=== PATIENT | female | born 1965 | race Caucasian/White ===

== ENCOUNTER → 2020-07-30 09:19 | Outpatient (BNVA) | payer MEDICAID, SELFPAY | PROVIDERS: Visit Provider Student in an Organized Health Care Education/Training Program | DX: M89.49 Other hypertrophic osteoarthropathy, multiple sites (principal); M79.7 Fibromyalgia | CPT/HCPCS: 99212 ==

== ENCOUNTER 2020-08-13 09:22 | Outpatient (REF) | payer SELFPAY ==
[2020-08-13 10:26] LABS: Cholesterol 200 mg/dL
== END 2020-08-13 09:23 | disposition home or self-care (01) ==
LOC: HO.LNC 09:22
PROVIDERS: Visit Provider Pathology Anatomic Pathology & Clinical Pathology
DX: Z13.89 Encounter for screening for other disorder (principal)
CPT/HCPCS: 36415; 82465

== ENCOUNTER 2020-08-25 13:45 | Outpatient (REF) | payer MEDICAID, SELFPAY | END 2020-08-25 13:46 | disposition home or self-care (01) | LOC: HO.HOSX 13:45 | PROVIDERS: PCP Internal Medicine; Visit Provider Orthopaedic Surgery | DX: M65.4 Radial styloid tenosynovitis [de Quervain] (principal); M79.7 Fibromyalgia; R20.0 Anesthesia of skin; R20.2 Paresthesia of skin; F17.210 Nicotine dependence, cigarettes, uncomplicated | CPT/HCPCS: 20550; 99202; J1100 ==

== ENCOUNTER 2020-10-20 09:57 | Outpatient (REF) | payer OTHER, SELFPAY ==
--- NOTE | 2020-10-20 10:00 | EMG_ITS ---
This is a 55-year-old woman with more than 10 year history of pain, numbness, and tingling and the right wrist pain. PHYSICAL EXAMINATION: On examination, she is alert and oriented with normal intellectual functions. Cranial nerves II through XII are normal. Muscle tone and strength are normal in all 4 extremities. No Tinel or Phalen sign. IMPRESSION: Rule out carpal tunnel syndrome. Nerve conduction EMG study: Normal electrodiagnostic study of both upper extremities with no evidence of carpal tunnel syndrome or nerve entrapment. Normal EMG of the right C5-T1 innervated muscles including cervical paraspinal muscles. MD CRISTHIAN Lynn/REESE / [id number]
== END 2020-10-20 09:58 | disposition home or self-care (01) ==
LOC: HO.NEURO 09:57
PROVIDERS: PCP Internal Medicine; Visit Provider Orthopaedic Surgery
DX: R20.0 Anesthesia of skin (principal); R20.2 Paresthesia of skin
CPT/HCPCS: 95885; 95913

== ENCOUNTER → 2020-11-15 14:28 | Outpatient (BNVA) | payer OTHER, SELFPAY | PROVIDERS: PCP Internal Medicine; Visit Provider Orthopaedic Surgery | DX: R20.0 Anesthesia of skin (principal); R20.2 Paresthesia of skin; M65.4 Radial styloid tenosynovitis [de Quervain] | CPT/HCPCS: 99212 ==

== ENCOUNTER → 2021-03-30 13:29 | Outpatient (BNVA) | payer OTHER, SELFPAY | PROVIDERS: PCP Internal Medicine; Visit Provider Orthopaedic Surgery | DX: M65.4 Radial styloid tenosynovitis [de Quervain] (principal) | CPT/HCPCS: 99212 ==

== ENCOUNTER 2021-04-11 12:08 | Day surgery (SDC) | payer OTHER, SELFPAY ==
[2021-04-11 12:44] VITALS: BP 163/75; PULSE 80; RESP 16; TEMP 36.1; O2SAT 97; BMI 32.1
--- NOTE | 2021-04-11 13:30 | W.PM.OPN ---
Operative Note Operative Note Date of Service: 04/11/21 Narrative: Operative Note Preop diagnosis: 1. Right DeQuervain's tenosynovitis Postop diagnosis: 1. Right DeQuervain's tenosynovitis Procedure: 1. Right 1st dorsal compartment release 2. Right 1st dorsal compartment abductor pollicis longus and extensor pollicis brevis tenosynovectomies Surgeon: Charissa Hawley MD Anesthesia: local block using 1% lidocaine with epinephrine Findings: Thickened 1st dorsal compartment. Hypertrophic tenosynovium about the APL and EPB tendons. EBL: Less than 5 mL Tourniquet time: None Specimens: None Complications: None Disposition: Brought to recovery room in stable condition Plan: Follow-up for 7-10 days for wound check and suture removal Indications: The patient is 55 years old, with right DeQuervain's tenosynovitis that has been unresponsive to nonoperative management. The risks and benefits of operative treatment including but not limited to risk of damage to blood vessels, nerves, tendons, infection, persistent pain, persistent symptoms, recurrence or possible need for additional surgery were discussed with the patient and the patient wishes to proceed with surgery. Procedure: Once consent was obtained a local block was performed in the preop area using a combination of 1% lidocaine with epinephrine. The patient was then brought back to the operating suite and placed on the operative table in supine position. A tourniquet was applied to the proximal aspect of the right upper extremity and the limb was prepped and draped in a standard surgical fashion. Once assured that we had a good block, a 1.5 cm longitudinal incision was made centered over the 1st dorsal compartment as it passed over the radial styloid of the right wrist. The incision was made through the skin to the subcutaneous tissues using a #15 blade. Careful dissection was made down to the level of the 1st dorsal compartment using tenotomy scissors, with care being taken to protect the nearby branches of the superficial radial nerve. Once the 1st dorsal compartment was exposed, A longitudinal incision was made in the 1st dorsal compartment 1st using a #15 blade, then using tenotomy scissors under direct visualization. The 1st dorsal compartment was noted to be thickened. Following our release, we saw abundant inflamed tenosynovium about the APL and EPB tendons. I then performed a tenosynovectomy, excising the inflamed tenosynovium from about the APL and EPB tendons. Both the APL and EPB tendons were in a single compartment, and there was smooth gliding of the abductor pollicis longus and extensor pollicis brevis tendons following are tenosynovectomy Once satisfied with our 1st dorsal compartment release the wound was copiously irrigated with normal saline and hemostasis was obtained with a brief period of local pressure. The skin edges were reapproximated with some 5.0 nylon suture material and a sterile dressing was applied. The patient appears to have tolerated the procedure well and with no complications. All digits were well vascularized at the conclusion of the case.
[2021-04-11 14:55] VITALS: BP 156/90; PULSE 77; RESP 18; TEMP 36.8; O2SAT 97
== END 2021-04-11 15:10 | disposition home or self-care (01) ==
PROVIDERS: PCP Internal Medicine; Visit Provider Orthopaedic Surgery
PROC: (CPT 26145; principal; 2021-04-11 14:00)
DX: M65.4 Radial styloid tenosynovitis [de Quervain] (principal); I10 Essential (primary) hypertension
CPT/HCPCS: 26145 ×2; 25000

== ENCOUNTER → 2021-04-20 12:29 | Outpatient (BNVA) | payer OTHER, SELFPAY | PROVIDERS: Visit Provider Physician Assistant | DX: M65.4 Radial styloid tenosynovitis [de Quervain] (principal) | CPT/HCPCS: 99212 ==

== ENCOUNTER → 2021-07-20 09:52 | Outpatient (BNVA) | payer OTHER, SELFPAY | PROVIDERS: PCP Internal Medicine; Visit Provider Nurse Practitioner Family | DX: M89.49 Other hypertrophic osteoarthropathy, multiple sites (principal); M79.7 Fibromyalgia; M54.50 Low back pain, unspecified | CPT/HCPCS: 99212 ==

== ENCOUNTER 2021-09-19 07:46 | Outpatient (REF) | payer OTHER, SELFPAY ==
--- NOTE | ~2021-09-19 | XR_ITS ---
EXAMINATION: XR LUMBOSACRAL SPINE CLINICAL INFORMATION: Low back pain. COMPARISON: None TECHNIQUE: Three views of the lumbosacral spine. FINDINGS: There is mild straightening of lumbar lordosis. The vertebral heights and alignment are normal. There is loss of L5-S1 disc height. Rest of the disc heights are maintained normal. There is mild ventral spondylosis throughout lumbar spine. No visible fracture, dislocation or lytic process seen. The soft tissues are normal. Degenerative disc changes L5-S1 disc level with moderate-sized spondylosis. XR/XR lumbar spine 2-3V IMPRESSION: Mild degenerative disc changes L5-S1 disc level with mild ventral spondylosis throughout lumbar spine. No acute fracture or lytic process seen.
== END 2021-09-19 07:47 | disposition home or self-care (01) ==
LOC: HO.XRAY 07:46
PROVIDERS: PCP Internal Medicine; Visit Provider Nurse Practitioner Family
DX: M54.50 Low back pain, unspecified (principal)
CPT/HCPCS: 72100

== ENCOUNTER → 2021-10-11 10:46 | Outpatient (BNVA) | payer OTHER, SELFPAY | PROVIDERS: PCP Internal Medicine; Visit Provider Nurse Practitioner Family | DX: M51.37 Other intervertebral disc degeneration, lumbosacral region (principal); M46.1 Sacroiliitis, not elsewhere classified; M54.2 Cervicalgia; M47.816 Spondylosis without myelopathy or radiculopathy, lumbar region; R20.0 Anesthesia of skin; R20.2 Paresthesia of skin | CPT/HCPCS: 99202 ==

== ENCOUNTER 2021-10-17 09:00 | Outpatient (RCR) | payer OTHER, SELFPAY ==
[2021-08-31 08:17] LABS: MANUAL DIFF FLAG NO
[2021-08-31 08:31] LABS: Basophils Absolute Auto 0.1 X10*3/uL (0.0-0.2); Basophils Percent Auto 0.7 % (0-2); Eosinophils Absolute Auto 0.2 X10*3/uL (0.0-0.4); Eosinophils Percent Auto 2.8 % (0-4); Hematocrit 42.1 % (37.0-47.0); Hemoglobin 14.2 g/dl (12.0-16.0); Imm Gran Abs Auto 0.03 X10*3/uL (0.00-0.03); Imm Gran Pct Auto 0.4 % (0.0-0.4); Lymphocytes Absolute Auto 1.8 X10*3/uL (1.2-4.9); Lymphocytes Percent Auto 25.6 % (20-40); Mean Corpuscular HGB Conc 33.7 g/dl (31.0-35.0); Mean Corpuscular Hemoglobin 30.9 pg (27.0-33.0); Mean Corpuscular Volume 91.5 fL (80.0-98.0); Mean Platelet Volume 10.2 fL (9.4-12.3); Monocytes Absolute Auto 0.5 X10*3/uL (0.1-1.2); Monocytes Percent Auto 6.7 % (2-11); Neutrophils Absolute Auto 4.5 x10*3/uL (2.0-8.3); Neutrophils Percent Auto 63.8 % (45-73); Platelet Count 187 X10*3/uL (160-400); Red Cell Distribution Width 12.9 % (11.0-16.0)
[2021-08-31 08:42] LABS: Appearance Urine CLEAR; Color Urine STRAW; Glucose Urine UA NEG (NEG); Leukocyte Esterase Urine NEG (NEG); Nitrite Urine NEG (NEG); Specific Gravity - Urine 1.015 (1.005-1.025); Urine Blood NEG (NEG); Urine Ketones NEG (NEG); Urine Protein NEG (NEG-TRACE)
[2021-08-31 09:08] LABS: Alanine Aminotransferase 15 U/L (0-31); Albumin Level 4.5 g/dL (3.5-5.0); Alkaline Phosphatase 107 U/L (39-117); Anion Gap 16 (12-20); Aspartate Amino Transferase 16 U/L (5-31); Bilirubin Total 0.4 mg/dL (0.0-1.0); Blood Urea Nitrogen 16 mg/dL (9-16); C Reactive Protein 0.52 mg/dL (< or = 0.50); Calcium 9.6 mg/dL (8.4-10.2); Carbon Dioxide 25 mmol/L (22-29); Chloride 106 mmol/L (96-108); Cholesterol 228 mg/dL; Erythrocyte Sedimentation Rate 10 MM/HR (0-20); Estimated Glomerular Filt Rate > 60; Glucose Fasting 109 mg/dL (60-99); HDL Cholesterol 45 mg/dL; LDL Cholesterol Calculated 139 mg/dl; Potassium 4.5 mmol/L (3.3-5.1); Sodium 142 mmol/L (135-145); Total Protein 7.5 g/dL (6.5-8.0); Triglycerides 220 mg/dL
[2021-08-31 09:31] LABS: Thyroid Stimulating Hormone 2.45 uIU/mL (0.32-4.0); Vitamin D 25-OH Total 33.9 ng/mL (>30)
[2021-08-31 09:37] LABS: Folate 12.2 ng/mL (> or = 4.0); Vitamin B12 588 pg/mL (200-900)
--- NOTE | 2021-08-31 16:21 | MHC.PT.EP ---
[facility] [place] Office [place] Office [place] Office [address] June Chow [address] [phone] F: [phone] F: [phone] F: [phone] F: [phone] Physical Therapy Plan of Care Date of Evaluation: Date of Surgery: NA Diagnosis: LOW BACK PAIN, FMS () Assessment: PILI IS A PLEASANT 56 YO FEMALE WHO PRESENTS WITH DIAGNOSIS OF LOW BACK PAIN AND FIBROMYALGIA. UPON EXAM SHE DOES REPORT SOME RELUCTANCE TO THERAPY TREATMENT YEARS AGO DID NOT HELP HER SYMPTOMS. UPON EXAM, SHE DEMONSTRATES DECREASED LUMBAR ROM, ALTERED POSTURE AND POSITIONING, ALTERED GAIT, DECREASED SOFT TISSUE MOBILITY AND INCREASED PAIN. FUNCTIONAL LIMITATIONS INCLUDE DECREASED ABILITY TO PERFORM LIFTING, BENDING, REACHING, PUSHING AND PULLING. SHE REPORTS DECREASED ABILITY TO PERFORM RECREATIONAL AND COMMUNITY ACTIVITIES. A PT IS A GOOD CANDIDATE FOR SKILLED PT DUE TO AGE, POTENTIAL REMEDIATION OF IMPAIRMENTS, TYPICAL DISEASE/CONDITION PROGRESSION AND PROGNOSIS, COMORBIDITIES, AND MOTIVATION. PT WOULD BENEFIT FROM TAILORED PROGRAM OF THERAPEUTIC ACTIVITIES, FUNCTIONAL TRAINING, GAIT TRAINING, POSTURAL EDUCATION, NEUROMUSCULAR RE-EDUCATION, AND MODALITIES NEEDED. Frequency and Duration: The patient will be seen 2 X WEEK FOR 6 WEEKS Short Term Goals: INITIATE HEP AND PROMOTE SELF MANAGEMENT OF SYMPTOMS IN 3 VISITS Jail Goals: IN 5 WEEKS FULL, PAIN FREE LUMBAR ROM TO PERFORM FULL FUNCTIONAL SQUAT WITH CORRECT MECHANICS AND NO VERBAL CUING TO PERFORM 3:3 LIFTING TASKS UP TO 20# WITHOUT CUING AND PAIN NO GREATER THAN 2/10 INDEPENDENT HEP AND SELF MANAGEMENT OF ANY RESIDUAL SYMPTOMS Treatment Plan: Modalities to reduce pain, spasms and effusion. Manual therapy to restore motion and function. Therapeutic exercise to improve strength and flexibility. Neuromuscular re-education for posture and balance. Therapeutic activities to return to functional activities of daily living. Electronically signed by: RAMEHS ELLISON PT, DPT Please sign and return to therapist. Thank you for your referral.
[2021-09-04 13:56] LABS: Vitamin B6 8.4 ng/mL (2.1-21.7)
[2021-09-05 12:15] LABS: Vitamin B1 16 nmol/L (8-30)
--- NOTE | 2021-10-21 08:33 | MHC.PT.DC ---
[facility] [place] Office [place] Office [place] Office [address] June Chow [address] [phone] F: [phone] F: [phone] F: [phone] F: [phone] Physical Therapy Discharge Report Diagnosis: LOW BACK PAIN, FMS (KP) Date of Surgery: NA Date of Evaluation: 08/31/21 Date of Discharge: 10/21/21 Treatments to Date: 12 Cancellations to Date: 0 No Shows to Date: 0 Discharge Status: Independent with HEP Discharge Summary: PILI IS INDEPENDENT WITH HER HOME PROGRAM AND HAS COMPLETED 12 VISITS OF THERAPY. SUBJECTIVE REPORTS OF PAIN HAVE NOT CHANGED AND AT THIS TIME RECOMMEDATIONS ARE TO CONTINUE HEP AND FOLLOW WITH PAIN MANAGEMENT. Electronically signed by: RAMESH ELLISON PT, DPT Please sign and return to therapist. Thank you for your referral.
== END 2021-10-21 08:34 | disposition home or self-care (01) ==
LOC: HO.PT 09:00
PROVIDERS: PCP Internal Medicine; Visit Provider Nurse Practitioner Family
DX: Z00.00 Encounter for general adult medical examination without abnormal findings (principal); M54.50 Low back pain, unspecified; I10 Essential (primary) hypertension; K21.9 Gastro-esophageal reflux disease without esophagitis; M79.7 Fibromyalgia
CPT/HCPCS: 36415; 80053; 80061; 81003; 82306; 82607; 82746; 84207; 84425; 84443; 85025; 85652; 86140; 97110; 97140; 97162; 97535

== ENCOUNTER 2021-11-01 09:24 | Outpatient (REF) | payer OTHER, SELFPAY ==
--- NOTE | ~2021-11-01 | XR_ITS ---
EXAMINATION: XR PELVIS CLINICAL INFORMATION: Sacroiliitis COMPARISON: None TECHNIQUE: Single frontal views of the pelvis obtained. FINDINGS: There is no radiographic evidence of acute fracture or dislocation. No osteolytic or osteoblastic lesions. Degenerative osteoarthritis of both hip joints and SI joints evident by narrowing of joint spaces and sclerotic changes of articular surfaces. There are vascular calcifications. Adjacent pubic rami are intact. Surrounding soft tissue is unremarkable. XR/XR pelvis 1-2V IMPRESSION: Bilateral degenerative osteoarthritis. Vascular calcifications.
--- NOTE | ~2021-11-01 | XR_ITS ---
EXAMINATION:XR cervical spine 3V CLINICAL INFORMATION: Cervalgia COMPARISON: None TECHNIQUE: 3 views of the cervical spine were obtained. Frontal lateral and open-mouth odontoid view FINDINGS: 7 cervical vertebrae identified maintaining normal height and alignments.. Narrowing of intervertebral disc spaces at C4-C5, C5-C6, C6-C7 and C7-T1 suggests underlying moderate degenerative disc disease. No prevertebral soft tissue swelling. Surrounding soft tissue and included lung apices are clear. Included lung apices are clear XR/XR cervical spine 3V IMPRESSION: No fracture or dislocation. Narrowing of intervertebral disc spaces suggest underlying degenerative disc disease.
[2021-11-04 09:16] LABS: HPV mRNA E6/E7 rflx Not Detected (Not Detected)
== END 2021-11-01 09:25 | disposition home or self-care (01) ==
LOC: HO.LAB 09:24
PROVIDERS: Absent Provider Nurse Practitioner Family; PCP Internal Medicine; Visit Provider Obstetrics & Gynecology
DX: Z01.419 Encounter for gynecological examination (general) (routine) without abnormal findings (principal); M46.1 Sacroiliitis, not elsewhere classified; M54.2 Cervicalgia; F17.210 Nicotine dependence, cigarettes, uncomplicated
CPT/HCPCS: 72040; 72170; 87624; 88142

== ENCOUNTER → 2021-11-08 10:21 | Outpatient (BNVA) | payer OTHER, SELFPAY | PROVIDERS: PCP Internal Medicine; Visit Provider Nurse Practitioner Family | DX: M46.1 Sacroiliitis, not elsewhere classified (principal); M54.2 Cervicalgia; M51.37 Other intervertebral disc degeneration, lumbosacral region; M47.816 Spondylosis without myelopathy or radiculopathy, lumbar region; M79.7 Fibromyalgia | CPT/HCPCS: 99212 ==

== ENCOUNTER 2021-11-22 08:08 | Outpatient (REF) | payer OTHER, SELFPAY ==
--- NOTE | ~2021-11-22 | MR_ITS ---
EXAMINATION: MR LUMBAR SPINE WITHOUT CONTRAST CLINICAL INFORMATION: Low back pain. Right leg pain. COMPARISON: X-ray from 09/19/2021 and MRI dated 06/22/2008. TECHNIQUE: MRI of the lumbar spine was obtained using routine sequences without contrast. FINDINGS: VERTEBRAL BODIES AND PARASPINAL STRUCTURES: There are mixed chronic and edematous endplate changes at the L5-S1 level with severe disc space narrowing and endplate spurring. There are irregularities of the endplates as well which may reflect Schmorl's nodes. Slightly elevated signal is noted within the disc space on the STIR-weighted acquisition. There are no compression fractures or anterior subluxations. The remainder of the marrow signal is within normal limits. The paraspinal soft tissues are unremarkable. Small right renal cyst is noted. There are urjg-en-oohezlgv degenerative changes of the sacroiliac joints. CONUS MEDULLARIS AND CAUDA EQUINA: Normal, terminating at the level of L2. No lower cord signal abnormality seen. The cauda equina nerve roots are normal. SPINAL LEVELS: L1-L2 and L2-L3: No disc pathology, central canal stenosis, or foraminal narrowing. Mild facet arthropathy at both levels. L3-L4: Mild degenerative disc bulge and anterior endplate spurring. Mild to moderate facet arthropathy. Findings result in mild central canal stenosis. Bulging disc mild to moderately encroaches upon the neural foramina. L4-L5: Slight posterior subluxation and diffuse disc bulge with hypertrophic facet arthropathy resulting in mild central canal stenosis and mild bilateral foraminal narrowing. L5-S1: Severe loss of disc height and retrosubluxation with endplate spurring and a diffuse disc bulge. Moderate facet arthropathy and mild central canal stenosis. Moderate to severe foraminal encroachment, worse on the left side. MR/MR lumbar spine wo con IMPRESSION: Severe degenerative disc disease at the L5-S1 level with endplate irregularities and mild to moderate marrow edema. Although findings may be due to reactive inflammatory changes from spondylosis, the possibility of early discitis/osteomyelitis cannot be conclusively ruled out on the basis of imaging. No epidural or paraspinal soft tissue disease otherwise. Recommend clinical correlation. Progressed spondylosis at the L3-L4 and L4-L5 levels with mild central canal stenosis and mild disc bulges encroaching upon the neural foramina. Imaging findings reported to WILTON Villareal at 3:20 PM on 11/23/2021.
== END 2021-11-22 08:09 | disposition home or self-care (01) ==
LOC: HO.MRI 08:08
PROVIDERS: PCP Internal Medicine; Visit Provider Nurse Practitioner Family
DX: M47.816 Spondylosis without myelopathy or radiculopathy, lumbar region (principal); M48.062 Spinal stenosis, lumbar region with neurogenic claudication; M51.37 Other intervertebral disc degeneration, lumbosacral region
CPT/HCPCS: 72148

== ENCOUNTER 2021-11-29 09:41 | Outpatient (REF) | payer OTHER, SELFPAY ==
--- NOTE | ~2021-11-29 | MM_ITS ---
EXAMINATION: MM SCREENING DIGITAL BREAST TOMOSYNTHESIS, BILATERAL CLINICAL INFORMATION: Screening. Asymptomatic. The lifetime risk of breast cancer based on the Tyrer-Cuzick Model is 10%. COMPARISON: Mammography: 09/20/2016, 10/19/2014 TECHNIQUE: Digital breast tomosynthesis is performed in both the craniocaudal and mediolateral oblique views along with computer-aided detection (CAD). Synthesized 2D images are generated from the tomosynthesis. Additional bilateral MLO views are provided. FINDINGS: There are scattered areas of fibroglandular density (ACR BI-RADS breast composition Category b). There are no significant masses, abnormal calcifications, or other abnormalities. Parenchymal pattern is similar to prior exams. No developing density. The axilla are unremarkable. MM/MM tomosynthesis screening BI IMPRESSION: No mammographic evidence of malignancy. ASSESSMENT: BI-RADS 1: Negative RECOMMENDATION: Routine annual mammography screening. This patient's information was entered into a reminder system with a target due date for their next mammogram.
== END 2021-11-29 09:42 | disposition home or self-care (01) ==
LOC: HO.MAMMO 09:41
PROVIDERS: Visit Provider Internal Medicine
DX: Z12.31 Encounter for screening mammogram for malignant neoplasm of breast (principal)
CPT/HCPCS: 77063; 77067

== ENCOUNTER 2021-12-02 13:30 | Outpatient (REF) | payer OTHER, SELFPAY ==
--- NOTE | ~2021-12-02 | MR_ITS ---
EXAMINATION: MR LUMBAR SPINE WITH CONTRAST CLINICAL INFORMATION: Abnormal findings on lumbar spine MRI. Follow-up. COMPARISON: Lumbar spine MRI 11/22/2021. TECHNIQUE: MR imaging of the lumbar spine was performed after the intravenous administration of 9 mL Gadavist contrast. FINDINGS: This examination is read in conjunction with the recent lumbar spine MRI from 11/22/2021. There is relatively mild bone marrow enhancement at the level of L5-S1 which coincides with the most likely diagnosis of degenerative spondylosis. No evidence of a discrete drainable fluid collection. No abnormal paraspinal inflammation or enhancement. No identifiable epidural phlegmon or abscess. MR/MR lumbar spine w con IMPRESSION: No evidence of discitis osteomyelitis. Bone marrow enhancement characteristics at L5-S1 are most consistent with degenerative spondylosis. No identifiable abscess or phlegmon.
[2021-12-02 13:38] LABS: MANUAL DIFF FLAG NO
[2021-12-02 13:40] LABS: Basophils Absolute Auto 0.1 X10*3/uL (0.0-0.2); Basophils Percent Auto 0.6 % (0-2); Eosinophils Absolute Auto 0.1 X10*3/uL (0.0-0.4); Eosinophils Percent Auto 1.1 % (0-4); Hematocrit 42.9 % (37.0-47.0); Hemoglobin 14.6 g/dl (12.0-16.0); Imm Gran Abs Auto 0.06 X10*3/uL (0.00-0.03); Imm Gran Pct Auto 0.5 % (0.0-0.4); Lymphocytes Absolute Auto 1.5 X10*3/uL (1.2-4.9); Lymphocytes Percent Auto 12.4 % (20-40); Mean Corpuscular Hemoglobin 30.4 pg (27.0-33.0); Mean Corpuscular Volume 89.4 fL (80.0-98.0); Mean Platelet Volume 10.2 fL (9.4-12.3); Monocytes Absolute Auto 0.6 X10*3/uL (0.1-1.2); Monocytes Percent Auto 5.1 % (2-11); Neutrophils Absolute Auto 9.9 x10*3/uL (2.0-8.3); Neutrophils Percent Auto 80.3 % (45-73); Platelet Count 213 X10*3/uL (160-400); Red Cell Distribution Width 13.4 % (11.0-16.0); White Blood Count 12.4 X10*3/uL (4.8-10.8)
[2021-12-02 13:52] LABS: Blood Urea Nitrogen 19 mg/dL (9-16); C Reactive Protein 0.68 mg/dL (< or = 0.50); Estimated Glomerular Filt Rate 50
[2021-12-02 14:35] LABS: Erythrocyte Sedimentation Rate 10 MM/HR (0-20)
== END 2021-12-02 13:31 | disposition home or self-care (01) ==
LOC: HO.MRI 13:30
PROVIDERS: PCP Internal Medicine; Visit Provider Nurse Practitioner Family
DX: Z01.812 Encounter for preprocedural laboratory examination (principal); M47.816 Spondylosis without myelopathy or radiculopathy, lumbar region; M51.37 Other intervertebral disc degeneration, lumbosacral region; R93.7 Abnormal findings on diagnostic imaging of other parts of musculoskeletal system
CPT/HCPCS: 36415; 72149; 82565; 84520; 85025; 85652; 86140; A9585

== ENCOUNTER → 2021-12-07 11:25 | Outpatient (BNVA) | payer OTHER, SELFPAY | PROVIDERS: PCP Internal Medicine; Visit Provider Nurse Practitioner Family | DX: M46.1 Sacroiliitis, not elsewhere classified (principal); M54.2 Cervicalgia; M51.37 Other intervertebral disc degeneration, lumbosacral region; M47.819 Spondylosis without myelopathy or radiculopathy, site unspecified; M79.7 Fibromyalgia; M89.49 Other hypertrophic osteoarthropathy, multiple sites; M53.9 Dorsopathy, unspecified; M54.16 Radiculopathy, lumbar region | CPT/HCPCS: 99212 ==

== ENCOUNTER 2022-01-04 10:04 | Outpatient (REF) | payer OTHER, SELFPAY ==
[2022-01-04 10:18] LABS: MANUAL DIFF FLAG NO
[2022-01-04 11:00] LABS: Basophils Percent Auto 0.6 % (0-2); Eosinophils Absolute Auto 0.2 X10*3/uL (0.0-0.4); Eosinophils Percent Auto 2.6 % (0-4); Hematocrit 39.2 % (37.0-47.0); Hemoglobin 13.7 g/dl (12.0-16.0); Imm Gran Abs Auto 0.04 X10*3/uL (0.00-0.03); Imm Gran Pct Auto 0.6 % (0.0-0.4); Lymphocytes Absolute Auto 1.4 X10*3/uL (1.2-4.9); Lymphocytes Percent Auto 21.6 % (20-40); Mean Corpuscular HGB Conc 34.9 g/dl (31.0-35.0); Mean Corpuscular Hemoglobin 31.4 pg (27.0-33.0); Mean Corpuscular Volume 89.9 fL (80.0-98.0); Mean Platelet Volume 10.5 fL (9.4-12.3); Monocytes Absolute Auto 0.6 X10*3/uL (0.1-1.2); Monocytes Percent Auto 8.3 % (2-11); Neutrophils Absolute Auto 4.4 x10*3/uL (2.0-8.3); Neutrophils Percent Auto 66.3 % (45-73); Platelet Count 197 X10*3/uL (160-400); Red Blood Count 4.36 X10*6/uL (4.20-5.50); White Blood Count 6.6 X10*3/uL (4.8-10.8)
[2022-01-04 15:16] LABS: Erythrocyte Sedimentation Rate 12 MM/HR (0-20)
== END 2022-01-04 10:05 | disposition home or self-care (01) ==
LOC: HO.LAB 10:04
PROVIDERS: PCP Internal Medicine; Visit Provider Nurse Practitioner Family
DX: N89.9 Noninflammatory disorder of vagina, unspecified (principal)
CPT/HCPCS: 36415; 85025; 85652; 86140

== ENCOUNTER 2022-01-13 06:58 | Outpatient (REF) | payer OTHER, SELFPAY | END 2022-01-13 06:59 | disposition home or self-care (01) | LOC: HO.RADIR 06:58 | PROVIDERS: Visit Provider Internal Medicine | DX: Z13.89 Encounter for screening for other disorder (principal) ==

== ENCOUNTER 2022-02-15 06:10 | Outpatient (REF) | payer OTHER, SELFPAY ==
--- NOTE | ~2022-02-15 | FL_ITS ---
EXAMINATION: XR FLUOROSCOPY WITH IMAGES CLINICAL INFORMATION: Radiculopathy. COMPARISON: None TECHNIQUE: Fluoroscopy performed by Katie Lynne. Fluoroscopy time: 0.5 minutes Cumulative Dose: 12.3 mGy DAP: 1.57 Gy-cm2 Images: 2 FINDINGS: There are 2 images obtained with needles positioned inferior to the bilateral L5 pedicles with contrast opacifying the bilateral epidural space. The visualized vertebral heights and alignment and disc heights are normal. FL/FL guidance in treatment room IMPRESSION: Fluoroscopy guidance was provided to the referrer for pain management.
== END 2022-02-15 06:11 | disposition home or self-care (01) ==
LOC: HO.RADIR 06:10
PROVIDERS: Visit Provider Internal Medicine
DX: M54.16 Radiculopathy, lumbar region (principal); M53.9 Dorsopathy, unspecified
CPT/HCPCS: 64483; J1100

== ENCOUNTER → 2022-03-17 11:35 | Outpatient (BNVA) | payer OTHER, SELFPAY | PROVIDERS: PCP Internal Medicine; Visit Provider Internal Medicine | DX: M54.12 Radiculopathy, cervical region (principal) | CPT/HCPCS: 99212 ==

== ENCOUNTER 2022-04-03 10:19 | Outpatient (REF) | payer OTHER, SELFPAY ==
--- NOTE | ~2022-04-03 | MR_ITS ---
EXAMINATION: MR CERVICAL SPINE WITHOUT CONTRAST CLINICAL INFORMATION: Hand tremors. Neck pain. Left arm weakness. COMPARISON: MRI dated 10/18/2012. TECHNIQUE: Multiplanar, multisequential imaging of the cervical spine was performed without contrast. FINDINGS: VERTEBRAL BODIES AND PARASPINAL SOFT TISSUES: There is a mild reversal of the normal cervical lordosis. Mild endplate edematous changes evident at the C4-C5 level with dysr-dh-iekpedgb disc space narrowing and endplate spurring. There are no compression fractures. Mild loss of disc height and posterior subluxation also evident at the C5-C6 level. The vertebral artery flow-voids are maintained. The paraspinal soft tissues are normal. The imaged lung apices are grossly clear. CERVICOMEDULLARY JUNCTION AND VISUALIZED POSTERIOR FOSSA: The craniovertebral junction and imaged portions of the brain parenchyma appear normal. No cord signal abnormality or syrinx is seen. SPINAL LEVELS: C2-C3: No disc pathology. Progressed severe left-sided facet arthropathy with mild reactive marrow edema. Moderate left foraminal narrowing. No central canal stenosis. C3-C4: Small central disc protrusion and mild left-sided facet arthropathy with khfk-ba-yayfltfo left foraminal encroachment. No central canal stenosis. C4-C5: Loss of disc height and broad-based right lateralized disc-osteophyte complex contributing to ventral cord distortion and mild to moderate central canal stenosis. Uncovertebral joint spurring and disc suspected to impinge upon the right C5 nerve root with severe right foraminal encroachment. C5-C6: Posterior subluxation and shallow disc-osteophyte complex with a left paracentral protrusion. No central canal stenosis. Severe right foraminal narrowing and moderate left foraminal encroachment. C6-C7 and C7-T1: No disc pathology. No central canal stenosis or foraminal narrowing. MR/MR cervical spine wo con IMPRESSION: Severe left-sided facet arthrosis with mild reactive marrow edema at the C2-C3 level contributing to moderate left foraminal encroachment. Small central disc protrusion and dmmc-[id number] left foraminal narrowing at the C3-C4 level. Prominent right posterolateral disc-osteophyte complex at the C4-C5 level distorting the right ventrolateral aspect of the cord with izet-rh-wdstdgis central canal stenosis. Suspected mass effect upon the right C5 nerve root with severe right foraminal encroachment. Disc-osteophyte complex and left paracentral disc protrusion with a mild posterior subluxation at the C5-C6 level. Moderate to severe foraminal narrowing, worse on the right side.
== END 2022-04-03 10:20 | disposition home or self-care (01) ==
LOC: HO.MRI 10:19
PROVIDERS: Visit Provider Internal Medicine
DX: M54.12 Radiculopathy, cervical region (principal)
CPT/HCPCS: 72141

== ENCOUNTER → 2022-07-20 10:02 | Outpatient (BNVA) | payer OTHER, SELFPAY | PROVIDERS: PCP Internal Medicine; Visit Provider Nurse Practitioner Family | DX: M79.7 Fibromyalgia (principal); M54.12 Radiculopathy, cervical region; M47.816 Spondylosis without myelopathy or radiculopathy, lumbar region; M51.37 Other intervertebral disc degeneration, lumbosacral region | CPT/HCPCS: 99212 ==

== ENCOUNTER → 2022-07-28 09:06 | Outpatient (BNVA) | payer OTHER, SELFPAY | PROVIDERS: PCP Internal Medicine; Visit Provider Internal Medicine | DX: M54.12 Radiculopathy, cervical region (principal); M47.812 Spondylosis without myelopathy or radiculopathy, cervical region | CPT/HCPCS: 99212 ==

== ENCOUNTER 2022-08-30 06:03 | Outpatient (REF) | payer OTHER, SELFPAY ==
--- NOTE | ~2022-08-30 | FL_ITS ---
EXAMINATION: XR FLUOROSCOPY WITH IMAGES CLINICAL INFORMATION: M54.12 - Radiculopathy, cervical region COMPARISON: MR cervical spine 04/03/2022 TECHNIQUE: Fluoroscopy Supervised By: Dr. Ziggy Baires. Fluoroscopy Time: 0.3 minutes. Cumulative Dose: 2.61 mGy. DAP: 0.325 Gycm2. Images: 2. FINDINGS: There is posterior interlaminar spinal needle lower cervical spine approximately C6-C7. There is epidural contrast seen. No visible vascular medication. FL/FL guidance in treatment room IMPRESSION: Fluoroscopy for pain management procedure.
== END 2022-08-30 06:04 | disposition home or self-care (01) ==
LOC: CF 06:03
PROVIDERS: Visit Provider Internal Medicine
DX: M54.12 Radiculopathy, cervical region (principal)
CPT/HCPCS: 62321; J1020; J1040; J1100

== ENCOUNTER 2022-09-13 06:43 | Outpatient (REF) | payer OTHER, SELFPAY ==
--- NOTE | ~2022-09-13 | FL_ITS ---
EXAMINATION: XR FLUOROSCOPY WITH IMAGES CLINICAL INFORMATION: Spondylosis without myelopathy. COMPARISON: None. TECHNIQUE: Fluoroscopy Supervised By: Katie Lynne NP. Fluoroscopy Time: 0.2 minutes. Cumulative Dose: 1.81 mGy. DAP: 0.239 Gy-cm2. Images: 4. FINDINGS: 4 digital images revealing needle positioned to the left of C2, C3 and C4 lamina with contrast opacifying the soft tissues. No fracture or lytic process seen. The soft tissues are normal. FL/FL guidance in treatment room IMPRESSION: Fluoroscopy was provided to referrer for pain management.
== END 2022-09-13 06:44 | disposition home or self-care (01) ==
LOC: CF 06:43
PROVIDERS: Visit Provider Internal Medicine
DX: M47.812 Spondylosis without myelopathy or radiculopathy, cervical region (principal)
CPT/HCPCS: 64490; 64491; J1100

== ENCOUNTER → 2022-09-15 11:51 | Outpatient (BNVA) | payer OTHER, SELFPAY | PROVIDERS: PCP Internal Medicine; Visit Provider Internal Medicine ==

== ENCOUNTER 2022-09-20 06:11 | Outpatient (REF) | payer OTHER, SELFPAY ==
--- NOTE | ~2022-09-20 | FL_ITS ---
EXAMINATION: XR FLUOROSCOPY WITH IMAGES CLINICAL INFORMATION: Spondylosis without myelopathy or radiculopathy. Cervical region. COMPARISON: 09/13/2022 and 08/30/2022. TECHNIQUE: Fluoroscopy Supervised By: Dr. Ziggy Baires. Fluoroscopy Time: 0.3 minutes. Cumulative Dose: 2.38 mGy. DAP: 0.252 Gy-cm2. Images: 2. FINDINGS: [place] and contrast are seen to the right of C2, C3, and C4 laminae. FL/FL guidance in treatment room IMPRESSION: Intraoperative fluoroscopy for pain management procedure.
== END 2022-09-20 06:12 | disposition home or self-care (01) ==
LOC: CF 06:11
PROVIDERS: Visit Provider Internal Medicine
DX: M47.812 Spondylosis without myelopathy or radiculopathy, cervical region (principal)
CPT/HCPCS: 64490; 64491; J2795

== ENCOUNTER → 2022-09-22 11:02 | Outpatient (BNVA) | payer OTHER, SELFPAY | PROVIDERS: PCP Internal Medicine; Visit Provider Internal Medicine ==

== ENCOUNTER 2022-11-03 06:21 | Outpatient (REF) | payer OTHER, SELFPAY ==
[2022-11-03 06:35] LABS: MANUAL DIFF FLAG NO
[2022-11-03 06:54] LABS: Basophils Percent Auto 0.4 % (0-2); Eosinophils Absolute Auto 0.2 X10*3/uL (0.0-0.4); Eosinophils Percent Auto 2.6 % (0-4); Hematocrit 40.1 % (37.0-47.0); Hemoglobin 13.3 g/dl (12.0-16.0); Imm Gran Abs Auto 0.04 X10*3/uL (0.00-0.03); Imm Gran Pct Auto 0.4 % (0.0-0.4); Lymphocytes Absolute Auto 2.7 X10*3/uL (1.2-4.9); Mean Corpuscular HGB Conc 33.2 g/dl (31.0-35.0); Mean Corpuscular Hemoglobin 30.4 pg (27.0-33.0); Mean Corpuscular Volume 91.8 fL (80.0-98.0); Mean Platelet Volume 10.1 fL (9.4-12.3); Monocytes Absolute Auto 0.9 X10*3/uL (0.1-1.2); Monocytes Percent Auto 9.5 % (2-11); Neutrophils Absolute Auto 5.3 x10*3/uL (2.0-8.3); Neutrophils Percent Auto 58.1 % (45-73); Platelet Count 208 X10*3/uL (160-400); Red Blood Count 4.37 X10*6/uL (4.20-5.50); Red Cell Distribution Width 13.5 % (11.0-16.0); White Blood Count 9.2 X10*3/uL (4.8-10.8)
[2022-11-03 09:26] LABS: Thyroid Stimulating Hormone 3.72 uIU/mL (0.32-4.0); Vitamin D 25-OH Total 45.9 ng/mL (>30)
[2022-11-03 10:08] LABS: Alanine Aminotransferase 26 U/L (0-31); Albumin Level 4.2 g/dL (3.5-5.0); Alkaline Phosphatase 105 U/L (39-117); Anion Gap 13 (12-20); Aspartate Amino Transferase 20 U/L (5-31); Bilirubin Total 0.3 mg/dL (0.0-1.0); Blood Urea Nitrogen 14 mg/dL (9-16); Calcium 9.1 mg/dL (8.4-10.2); Carbon Dioxide 25 mmol/L (22-29); Chloride 110 mmol/L (96-108); Cholesterol 183 mg/dL; Estimated Glomerular Filt Rate > 60; Glucose Fasting 101 mg/dL (60-99); HDL Cholesterol 39 mg/dL; LDL Cholesterol Calculated 111 mg/dl; Potassium 4.2 mmol/L (3.3-5.1); Sodium 144 mmol/L (135-145); Total Protein 6.5 g/dL (6.5-8.0); Triglycerides 167 mg/dL
== END 2022-11-03 06:22 | disposition home or self-care (01) ==
LOC: HO.LAB 06:21
PROVIDERS: PCP Internal Medicine; Visit Provider Internal Medicine
DX: I10 Essential (primary) hypertension (principal); K21.9 Gastro-esophageal reflux disease without esophagitis; F41.9 Anxiety disorder, unspecified; F17.200 Nicotine dependence, unspecified, uncomplicated; M79.7 Fibromyalgia; E66.09 Other obesity due to excess calories
CPT/HCPCS: 36415; 80053; 80061; 82306; 84443; 85025

== ENCOUNTER 2022-12-20 06:00 | Outpatient (REF) | payer MEDICARE, MEDICAID, SELFPAY ==
--- NOTE | ~2022-12-20 | FL_ITS ---
EXAMINATION: XR FLUOROSCOPY WITH IMAGES CLINICAL INFORMATION: Bilateral SI joint pain. COMPARISON: None available. TECHNIQUE: Fluoroscopy Supervised By: Dago silva. Fluoroscopy Time: 0.2. Cumulative Dose: 6.27 mGy. DAP: 0.729 Gycm2. Images: 4. FINDINGS: Exam was performed on 12/20/2022 and is available for interpretation today 07/17/2023. There are needles positioned along the right and left SI joints with contrast injection. Visualized joint space is slightly narrowed. No bony abnormality seen otherwise. FL/FL guidance in treatment room IMPRESSION: 1. Bilateral SI joint injection with contrast injection. 2. Fluoroscopy was provided to referring physician for SI joint pain management.
== END 2022-12-20 06:01 | disposition home or self-care (01) ==
LOC: CF 06:00
PROVIDERS: Visit Provider Internal Medicine
DX: M46.1 Sacroiliitis, not elsewhere classified (principal)
CPT/HCPCS: 27096

== ENCOUNTER → 2022-12-22 10:26 | Outpatient (BNVA) | payer MEDICARE, MEDICAID, SELFPAY | PROVIDERS: PCP Internal Medicine; Visit Provider Internal Medicine | DX: M79.18 Myalgia, other site (principal); M48.02 Spinal stenosis, cervical region | CPT/HCPCS: 20553; 99212; J2795 ==

== ENCOUNTER → 2023-01-03 10:38 | Outpatient (BNVA) | payer MEDICARE, MEDICAID, SELFPAY | PROVIDERS: PCP Internal Medicine; Visit Provider Obstetrics & Gynecology | DX: Z01.419 Encounter for gynecological examination (general) (routine) without abnormal findings (principal); N90.4 Leukoplakia of vulva | CPT/HCPCS: 99212; G0101 ==

== ENCOUNTER 2023-01-24 08:57 | Outpatient (AMB) | payer MEDICARE, MEDICAID, SELFPAY ==
--- NOTE | 2023-01-24 09:08 | HO.SPINEOV ---
Intake Vital Signs 01/24/23 09:10 Height 5 ft 4 in Weight 194 lb BMI 33.3 Intake Visit Reasons: spinal stenosis Intake Note: Ms. Starr is here today c/o low back and neck pain. MRI done @ [facility]. Recordist Required: No Allergies amlodipine Allergy (Intermediate, Verified 01/24/23 09:09) fatigue atenolol Allergy (Intermediate, Verified 01/24/23 09:09) headache cefdinir Allergy (Intermediate, Verified 01/24/23 09:09) GI UPSET chlorthalidone Allergy (Intermediate, Verified 01/24/23 09:09) constipation hydrochlorothiazide Allergy (Intermediate, Verified 01/24/23 09:09) leg pain BuPROPion HCl Allergy (Intermediate, Uncoded 01/03/23 10:51) dizziness, nausea Codeine Phosphate Allergy (Intermediate, Uncoded 01/03/23 10:51) nausea Diltiazem HCl CR Allergy (Intermediate, Uncoded 01/03/23 10:51) headache and fatigue ENVIRONMENTAL Allergy (Intermediate, Uncoded 01/03/23 10:51) HAYFEVER Assessment & Plan Assessment & Plan (1) Cervical spondylosis: Code(s): M47.812 - Spondylosis without myelopathy or radiculopathy, cervical region (2) Numbness and tingling in both hands: Code(s): R20.0 - Anesthesia of skin; R20.2 - Paresthesia of skin (3) Fibromyalgia: Code(s): M79.7 - Fibromyalgia Plan Dear colleague, On 01/24/2023, I saw your patient Zuri Starr with a chief complaint of back and neck pain. History of present illness: This patient is complaining of occipital neck pain with associated headaches. She recently had trigger point injections which made her symptoms worse. She denies radiating pain down her arms. Her head and arms feel too heavy for her neck. She has a numb spot on the upper right arm. She also complains of numbness in her hands. In fact, she complains of diffuse numbness over her whole body. She also states that she has more numbness in her right leg when she walks. In the winter she suffering from severe low back pain that radiates into her groins. She has a family history of vascular disease and smokes 1 pack a day. She also has fibromyalgia and hypertension. Physical exam: Pleasant female. Tinel iis negative. Phalen is positive bilaterally. No hyperreflexia. No pathological reflexes. Motor exam is intact. Gait is undisturbed. Radiological studies[facility] left side. No spinal cord compression. An MRI of the lumbar spine of November 2021 shows severe lumbar degenerative disc disease L5-S1. In summary, this patient is suffering from neck pain and headaches without cervical radiculopathy or myelopathic symptoms. The MRI of the cervical spine shows degenerative disc disease but no spinal cord compression. I do think she suffering from carpal tunnel syndrome bilaterally. Apparently she had an EMG in the past that showed mild carpal tunnel syndrome. Mi PN, carpal tunnel syndrome is a clinical diagnosis. I would like to refer to neurology for further evaluation of the diffuse numbness. I advised to return to my clinic if she wants to have the low back pain treated. The right leg numbness is most likely associated with severe L5-S1 degenerative disc disease. I spent 45 minutes in this consult for preparation, personal review of imaging and discussing plan of care. Thank you for the referral. Alexei Reddy MD, PhD Spine Fellowship Trained Neurosurgeon Director, [facility] Orders: Referrals Neurology Referral M79.7 - Fibromyalgia, R20.0 - Anesthesia of skin, R20.2 - Paresthesia of skin Coding Level of Care Code New Pt Level 4 (78864) Diagnoses Cervical spondylosis M47.812 Numbness and tingling in both hands R20.0; R20.2 Fibromyalgia M79.7
[2023-01-24 09:10] VITALS: BMI 33.3
== END 2023-01-24 10:40 | disposition home or self-care (01) ==
PROVIDERS: PCP Internal Medicine; Referring Provider Internal Medicine; Visit Provider Neurological Surgery
DX: M47.812 Spondylosis without myelopathy or radiculopathy, cervical region (principal); R20.0 Anesthesia of skin; R20.2 Paresthesia of skin; M79.7 Fibromyalgia
CPT/HCPCS: 99204

== ENCOUNTER → 2023-01-24 08:57 | Outpatient (BNVA) | payer MEDICARE, MEDICAID, SELFPAY | PROVIDERS: PCP Internal Medicine; Visit Provider Neurological Surgery | DX: M47.812 Spondylosis without myelopathy or radiculopathy, cervical region (principal); M79.7 Fibromyalgia; R20.0 Anesthesia of skin; R20.2 Paresthesia of skin | CPT/HCPCS: 99202 ==

== ENCOUNTER 2023-10-17 06:55 | Outpatient (REF) | payer MEDICARE, MEDICAID, SELFPAY ==
[2023-10-17 07:23] LABS: MANUAL DIFF FLAG NO
[2023-10-17 07:55] LABS: Basophils Absolute Auto 0.1 X10*3/uL (0.0-0.2); Basophils Percent Auto 0.6 % (0-2); Eosinophils Absolute Auto 0.3 X10*3/uL (0.0-0.4); Eosinophils Percent Auto 3.9 % (0-4); Hematocrit 41.5 % (37.0-47.0); Hemoglobin 14.1 g/dl (12.0-16.0); Imm Gran Abs Auto 0.04 X10*3/uL (0.00-0.03); Imm Gran Pct Auto 0.5 % (0.0-0.4); Lymphocytes Absolute Auto 2.7 X10*3/uL (1.2-4.9); Mean Corpuscular Hemoglobin 30.9 pg (27.0-33.0); Mean Platelet Volume 10.3 fL (9.4-12.3); Monocytes Absolute Auto 0.6 X10*3/uL (0.1-1.2); Monocytes Percent Auto 8.3 % (2-11); Neutrophils Percent Auto 51.7 % (45-73); Platelet Count 207 X10*3/uL (160-400); Red Blood Count 4.56 X10*6/uL (4.20-5.50); Red Cell Distribution Width 13.2 % (11.0-16.0); White Blood Count 7.7 X10*3/uL (4.8-10.8)
[2023-10-17 08:16] LABS: Alanine Aminotransferase 21 U/L (0-31); Albumin Level 4.4 g/dL (3.5-5.0); Alkaline Phosphatase 105 U/L (39-117); Anion Gap 14 (12-20); Aspartate Amino Transferase 18 U/L (5-31); Bilirubin Total 0.4 mg/dL (0.0-1.0); Blood Urea Nitrogen 12 mg/dL (9-16); Calcium 9.5 mg/dL (8.4-10.2); Carbon Dioxide 25 mmol/L (22-29); Chloride 107 mmol/L (96-108); Cholesterol 206 mg/dL (<200); Estimated Glomerular Filt Rate > 60; Glucose Fasting 93 mg/dL (60-99); HDL Cholesterol 46 mg/dL (>40); LDL Cholesterol Calculated 117 mg/dL (<100); Potassium 4.4 mmol/L (3.3-5.1); Sodium 142 mmol/L (135-145); Total Protein 7.6 g/dL (6.5-8.0); Triglycerides 215 mg/dL (<150)
[2023-10-17 08:37] LABS: Vitamin D 25-OH Total 42.5 ng/mL (>30)
== END 2023-10-17 06:56 | disposition home or self-care (01) ==
LOC: HO.LAB 06:55
PROVIDERS: PCP Internal Medicine; Visit Provider Internal Medicine
DX: I10 Essential (primary) hypertension (principal); K21.9 Gastro-esophageal reflux disease without esophagitis; E66.09 Other obesity due to excess calories; E78.00 Pure hypercholesterolemia, unspecified
CPT/HCPCS: 36415; 80053; 80061; 82306; 84443; 85025

== ENCOUNTER 2024-01-16 09:24 | Outpatient (AMB) | payer MEDICARE, MEDICAID, SELFPAY ==
--- OUTSIDE RECORDS SUMMARY | 2024-01-16 09:26 | XMS_ITS | Patient Health Record ---
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 Name Role Phone Андрей Simmons Primary Care Provider ALLERGIES Allergen (clinical drug ingredient) Drug/Non Drug Allergy documented on EMR Reaction Allergy Type Onset Date Status chlorthalidone Chlorthalidone constipation Drug Allergy Active cefdinir Cefdinir diarrhea Drug Allergy Active bupropion BuPROPion HCl dizziness, nausea Drug Allergy Active atenolol Atenolol headache Drug Allergy Active amlodipine Amlodipine Besylate fatigue Drug Allergy Active levofloxacin Levofloxacin urinary incontinence Drug Allergy Active hydrochlorothiazide Hydrochlorothiazide leg pain D rug Allergy Active Diltiazem HCl CR headache and fatigue Drug Allergy Active Codeine Phosphate nausea Drug Allergy Active RESULTS Component Value Reference Range Notes Complete Blood Count Auto Di ff Reviewed date:10/17/2023 12:47:27 PM Interpretation:Normal Performing Lab:[facility], [address] [place] [phone] Notes/Report: White Blood Count 7.7 4.8-10.8 X10*3/uL Red Blood Count 4.56 4.20-5.50 X10*6/uL Hemoglobin 14.1 12.0-16.0 g/dl Hematocrit 41.5 37.0-47.0 % Mean Corpuscular Volume 91.0 80.0-98.0 fL Mean Corpuscular Hemoglobin 30.9 27.0-33.0 pg Mean Corpuscular HGB Conc 34.0 31.0-35.0 g/dl Red Cell Distribution Width 13.2 11.0-16.0 % Platelet Count 207 160-400 X10*3/uL Mean Platelet Volume 10.3 9.4-12.3 fL Neutrophils Percent Auto 51.7 45-73 % Imm Gran Pct Auto 0.5 0.0-0.4 % Lymphocytes Percent Auto 35.0 20-40 % Monocytes Percent Auto 8.3 2-11 % Eosinophils Percent Auto 3.9 0-4 % Basophils Percent Auto 0.6 0-2 % NRBC Pct Auto 0.0 0.0-0.2 /100WBC Neutrophils Absolute Auto 4.0 2.0-8.3 x10*3/u L Imm Gran Abs Auto 0.04 0.00-0.03 X10*3/uL Lymphocytes Absolute Auto 2.7 1.2-4.9 X10*3/u L Monocytes Absolute Auto 0.6 0.1-1.2 X10*3/uL Eosinophils Absolute Auto 0.3 0.0-0.4 X10*3/u L Basophils Absolute Auto 0.1 0.0-0.2 X10*3/uL NRBC Abs Auto 0.000 0.0-0.012 X10*3/uL Comprehensive [place]. Panel Fa st Reviewed date:10/17/2023 12:47:27 PM Interpretation:Normal Performing Lab:[facility], [address] [place] [phone] Notes/Report: Sodium 142 135-145 mmol/L Potassium 4.4 3.3-5.1 mmol/L Chloride 107 96-108 mmol/L Carbon Dioxide 25 22-29 mmol/L Anion Gap 14 12-20 Blood Urea Nitrogen 12 9-16 mg/dL Creatinine 0.86 0.5-1.4 mg/dL Estimated Glomerular Filt Rate > 60 NOTE: For -Angolan individuals, multiply the result by 1.210. Chronic Kidney Disease: Estimated GFR < 60 mL/min/1.73m2 Severe Kidney Disease: Estimated GFR < 15 mL/min/1.73m2 Glucose Fasting 93 60-99 mg/dL Calcium 9.5 8.4-10.2 mg/dL Bilirubin Total 0.4 0.0-1.0 mg/dL Aspartate Amino Transferase 18 5-31 U/L Alanine Aminotransferase 21 0-31 U/L Total Protein 7.6 6.5-8.0 g/dL Albumin Level 4.4 3.5-5.0 g/dL Alkaline Phosphatase 105 39-117 U/L Lipid Panel Reviewed date:10/17/2023 12:47:27 PM Interpretation:Normal Performing Lab:[facility], [address] [place] [phone] Notes/Report: Triglycerides 215 <150 mg/dL Desirable Triglyceride: less than 150 mg/dL Borderline High Triglyceride 150-199 mg/dL High Triglyceride: 200-499 mg/dL Very High Triglyceride: greater than or equal to 5OO mg/dL Cholesterol 206 <200 mg/dL Desirable Cholesterol: less than 200 mg/dL Borderline High Cholesterol: 200-239 mg/dL High Cholesterol: greater than 239 mg/dL LDL Cholesterol Calculated 117 <100 mg/dL Desirable LDL: less than 100 mg/dL Near Optimal/Above Optimal LDL: 110-129 mg/dL Borderline High LDL: 130-159 mg/dL High LDL: 160-189 mg/dL Very High LDL: greater than or equal to 190 mg/dL HDL Cholesterol 46 >40 mg/dL Desirable HDL: greater than 40 mg/dL Note: This HDL assay may give artificially low results in patients with liver disease. Vitamin D 25-OH Total Reviewed date:10/17/2023 12:47:27 PM Interpretation:Normal Performing Lab:[facility], [address] [place] [phone] Notes/Report: Vitamin D 25-OH Total 42.5 >30 ng/mL Health Based Reference Values* < 20 ng/mL Deficient 20-30 ng/mL Insufficient > 30 ng/mL Sufficient *Ion GUARDADO. N Engl J Med. 2007;357:266-280 Care must be taken in interpreting Vitamin D results from different laboratories and methodologies. Published data demonstrated that results from patients undergoing hemodialysis may show a negative bias when tested with various automated 25-OH vitamin D assays when compared to LC-MS/MS. When testing samples from patients whose predominant form of Vitamin D is Vitamin D2, such as patients receiving Vitamin D2 supplementation, results that are subtherapeutic should be confirmed with another method such as LC-MS/MS. Thyroid Stimulating Hormone Reviewed date:10/17/2023 12:47:27 PM Interpretation:Normal Performing Lab:[facility], [address] [place] [phone] Notes/Report: Thyroid Stimulating Hormone 2.20 0.32-4.0 uIU/ mL TSH 3rd Generation ([facility]) REASON FOR REFERRAL No Information MEDICATIONS Medication SIG (Take, Route, Frequency, Duration) Notes Start Date End Date Status Vitamin D3 25 MCG (1000 UT) 1 tablet Ora lly Once a day Active Sertraline HCl 100 MG 1 tablet Orally On ce a day Active cloNIDine HCl 0.1 MG 1 tablet as needed Orally Twice a day Active hydrOXYzine HCl 25 MG 1 tablet at bedtim e as needed Orally Once a day Active ALPRAZolam 1 MG 0.5 tablet at bedtim e as needed Orally Once a day 10/15/2019 Active Fexofenadine HCl 180 MG 1 tablet Orally Once a day Active Losartan Potassium 100 MG 1 tablet Orall y Once a day Active Mometasone Furoate 0.1 % 1 application a s needed Externally Once a day Active Furosemide 40 MG 1 tablet Orally Once a day Active Fluocinolone Acetonide Scalp 0.01 % 1 application to affected area at bedtime as needed Externally Once a day Active Meloxicam 15 MG 1 tablet with food a s needed Orally Once a day for 30 days 10/11/2022 Active Ketoconazole 2 % 1 application as directed, as needed Externally Once a day for 10 days Active Atorvastatin Calcium 20 MG 1 tablet Oral ly Once a day Active Omeprazole 40 MG 1 capsule 30 minutes before morning meal as needed Orally Once a day Active IMMUNIZATIONS Vaccine Route Administration Date Status Comme nts Td (adult) Unknown 02/27/2012 Administered DECLINE: Influenza Unknown 04/11/2013 Administered COVID-19 Pfizer BioNTech Unknown 12/22/2020 Administere d COVID-19 Pfizer BioNTech Unknown 01/12/2021 Administere d Influenza Unknown 04/16/2014 Refused Influenza Unknown 08/31/2015 Refused Influenza Unknown 03/10/2016 Refused Influenza Unknown 03/21/2022 Refused SOCIAL HISTORY Tobacco Use: Social History Observation Description Date Details (start date - stop date) Current Smoker NA - NA Sex Assigned At : Social History Observation Description Sex Assigned At Female Tobacco Use/Smoking Question Answer Notes Patient is a current smoker How often do you smoke cigarettes? every day How many cigarettes a day do you smoke? 11-20 How soon after you wake up d o you smoke your first cigarette? 6-30 minutes Are you interested in quitting? Thinking about q uitting Additional Findings: Tobacco User Curren t cigarette smoker, not currently using another form of tobacco Alcohol Screen Question Answer Notes Did you have a drink contain ing alcohol in the past year? Yes How often did you have a dri nk containing alcohol in the past year? 2 to 3 times a week (3 points) How many drinks did you have on a typical day when you were drinking in the past year? 1 or 2 drinks (0 point) How often did you have 6 or more drinks on one occasion in the past year? Never (0 point) Points 3 Interpretation Positive PROBLEMS Problem Type ICD Code Onset Dates Problem Status W/U Status Risk SNOMED Code Notes Problem Fibromyalgia (M79.7) Active confirmed 2 8122203 Problem Other obesity due to excess calories (E66.09) Active confirmed 951276190 Problem Nicotine dependence, unspecified, uncomplicated (F17.200) Active confirmed Tobacco user (260587346) Problem Low back pain (M54.5) Active confirmed 313319927 Problem Anxiety (F41.9) Active confirmed 584758 02 Problem Essential hypertensi on (I10) Active confirmed 59189942 Problem Gastroesophageal reflux disease without esophagitis (K21.9) Active confirmed 510289718 Problem Other depression (F32.8) Active confirmed 19173891 Problem Hypercholesterolemia (E78.00) Active confirmed 88385223 Problem Obesity (BMI 30.0-34.9) (E66.9) Active confirmed [id number] Encounters Encounter Location Date Provider Diagnosis Андрей Simmons DO, [address] [id number] 10/24/2023 Андрей Simmons Essential hypertensi on I10 ; Gastroesophageal reflux disease without esophagitis K21.9 ; Anxiety F41.9 ; Fibromyalgia M79.7 and Other obesity due to excess calories E66.09 Андрей Simmons DO, [address] [id number] 02/09/2023 Андрей Simmons DO, [address] [id number] 10/05/2023 Андрей Simmons Essential hypertensi on I10 ; Gastroesophageal reflux disease without esophagitis K21.9 ; Other obesity due to excess calories E66.09 and Hypercholesterolemia E78.00 Андрей Simmons DO, [address] [id number] 10/24/2023 Андрей Simmons DO, [address] [id number] 04/13/2023 Андрей Simmons Essential hypertensi on I10 ; Gastroesophageal reflux disease without esophagitis K21.9 ; Fibromyalgia M79.7 ; Anxiety F41.9 and Other obesity due to excess calories E66.09 Андрей Simmons DO, [address] [id number] 10/05/2023 Андрей Simmons ASSESSMENTS Encounter Date Diagnosis Assessment Notes Treatment Notes Treatment Clinical Notes 10/24/2023 Essential hypertensi on (ICD-10 - I10) 10/24/2023 Gastroesophageal ref lux disease without esophagitis (ICD-10 - K21.9) 10/05/2023 Essential hypertensi on (ICD-10 - I10) 10/05/2023 Gastroesophageal ref lux disease without esophagitis (ICD-10 - K21.9) 04/13/2023 Essential hypertensi on (ICD-10 - I10) 04/13/2023 Gastroesophageal ref lux disease without esophagitis (ICD-10 - K21.9) 10/24/2023 Anxiety (ICD-10 - F41.9) 10/05/2023 Other obesity due to excess calories (ICD-10 - E66.09) 04/13/2023 Fibromyalgia (ICD-10 - M79.7) 10/24/2023 Fibromyalgia (ICD-10 - M79.7) 10/05/2023 Hypercholesterolemia (ICD-10 - E78.00) 04/13/2023 Anxiety (ICD-10 - F41.9) Fol low up with Psychiatry 10/24/2023 Other obesity due to excess calories (ICD-10 - E66.09) Diet, weight loss. Needs to decrease her BMI. Goal weight loss of 15 pounds. Decrease carbohydrate intake 04/13/2023 Other obesity due to excess calories (ICD-10 - E66.09) Diet, portion control, weight loss 10/24/2023 Other Refer to for community resources around SDOH PLAN OF TREATMENT Next Appt Details Provider Name:Андрей barger, 04/22/2024 09:30:00 AM, [address] [place] [address], [phone], Insurance Providers Payer Name Payer Address Payer Phone Subscriber Number Group Number Insured Name Patient Relationship to Insured Coverage Start Date Coverage End Date MEDICARE [address] [place] [address] [id number] Navya Starr Self - patient is the insured [facility] [address] [place], [place] [phone] [id number] Navya Starr Self - patient is the insured MEDICAL (GENERAL) HISTORY Medical History History ICD Code hypertension gastroesophageal reflux disease (GERD) depression anxiety Panic attacks fibromyalgia headache allergies Shortness of breath on exertion Low back pain M54.5 Surgical History Surgery Date(Month/Year) right wrist surgery tonsillectomy and adenoidectomy
--- NOTE | 2024-01-16 09:39 | MHC.OFFVIS ---
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 (Aminata) Allergies amlodipine Allergy (Intermediate, Verified 01/16/24 09:40) fatigue atenolol Allergy (Intermediate, Verified 01/16/24 09:40) headache cefdinir Allergy (Intermediate, Verified 01/16/24 09:40) GI UPSET chlorthalidone Allergy (Intermediate, Verified 01/16/24 09:40) constipation hydrochlorothiazide Allergy (Intermediate, Verified 01/16/24 09:40) leg pain BuPROPion HCl Allergy (Intermediate, Uncoded 01/03/23 10:51) dizziness, nausea Codeine Phosphate Allergy (Intermediate, Uncoded 01/03/23 10:51) nausea Diltiazem HCl CR Allergy (Intermediate, Uncoded 01/03/23 10:51) headache and fatigue ENVIRONMENTAL Allergy (Intermediate, Uncoded 01/03/23 10:51) HAYFEVER HPI Comments Details: Presenting for annual exam. Complaining of vulvar itching, last year the patient had leukoplakia on pelvic exam, vulvar biopsy was scheduled but the patient did not show up for the appointment. Since then the patient has been complaining of bilateral vulvar itching. Last Pap/HPV in 10/28 was negative Last Mammogram BI-RADS 1 in 11/27 Last Colonoscopy was in 04/23, the recommendation was to repeat in 10 years [facility] Medical History Fibromyalgia Depression GERD (gastroesophageal reflux disease) Hypertension Surgical History History of endometrial ablation Family History Mother Lung cancer Anxiety Father COPD (chronic obstructive pulmonary disease) Heart disease Hypertension Diabetes High cholesterol Social History Alcohol intake: current Alcohol intake frequency: 0-2 drinks per day Alcohol type: beer Patient Tobacco Use Status: Current everyday Tobacco user Tobacco use type: Cigarette Cigarette Packs Per Day: 1.0 Cigarettes Per Day: 20.0 Second Hand Smoke Exposure: No Current occupational status: unemployed Current occupation: left handed Female Reproductive History Menstrual Age of Menarche: 13 Menopause type: surgical Total pregnancies: 0 Date of last pap smear: 11/01/21 (neg pap and hpv) Date of Mammogram: 11/29/21 Review of Systems Const All systems reviewed & are unremarkable except as noted in HPI and below Card Reports as per HPI Resp Reports as per HPI GI Reports as per HPI and Reports no additional complaints Reports as per HPI Physical Exam Vital Signs: Last Vital Signs BP 132/60 01/16/24 09:40 BMI result Body Mass Index 33.1 Const General: cooperative, healthy appearing and comfortable Chest Chest palpation & inspection: normal inspection of the chest and normal palpation of entire chest wall Breast/axilla inspection: normal inspection of the breasts and normal inspection of the axillae Breast/axilla palpation: normal palpation of the breasts, normal palpation of the axillae and no axillary lymphadenopathy Resp Effort & Inspection: normal respiratory effort Auscultation: clear to auscultation bilaterally Percussion: percussion normal Cardio Palpation: normal PMI Rate: regular rate Rhythm: regular rhythm Heart sounds: no murmurs and no rubs Peripheral pulses: Peripheral pulses 2+ throughout GI Inspection: Yes normal to inspection Palpation (GI): Soft to palpation, nontender, no guarding, not rigid and No hepatosplenomegaly present Percussion: Yes normal to percussion Auscultation: normal bowel sounds Rectal Exam - Female: deferred General: Yes bladder normal to palpation External Female Exam: lesion (Bilateral vulvar and posterior fourchette leukoplakia) Speculum Exam - Vagina: normal appearance of the vagina, normal palpation, normal vaginal discharge and not erythematous Speculum Exam - Cervix: normal appearance of the cervix and normal palpation Bimanual exam- vagina & uterus: normal bimanual exam, normal palpation, uterine size normal, bladder normal to palpation, consistency normal and normal palpation Bimanual Exam- Adnexa, other: normal adnexae, no masses and no tenderness Assessment & Plan Assessment & Plan (1) Well woman exam: Code(s): Z01.419 - Encounter for gynecological examination (general) (routine) without abnormal findings Category: Medical Plan: Co testing not indicated this year. Counseled the patient about the recommended dietary allowance of 1200 mg of Calcium & 600 IU of vitamin D. Mammogram ordered. The patient was instructed to perform monthly self-breast exams and schedule annual exam in a year. All questions answered and the patient verbalized understanding. 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 Instructions given the patient to schedule a 2 week vulvar biopsy appointment. All questions answered, the patient verbalized understanding Orders: Orders MM tomosynthesis screening BI Today Z12.31 - Encounter for screening mammogram for malignant neoplasm of breast Coding Level of Care Code Est Pt Prev Care 40-64y(84499) Diagnoses Well woman exam Z01.419 Vulvar leukoplakia N90.4
[2024-01-16 09:40] VITALS: BP 132/60; BMI 33.1
== END 2024-01-16 10:14 | disposition home or self-care (01) ==
LOC: HO.HWS 09:24
PROVIDERS: PCP Internal Medicine; Visit Provider Obstetrics & Gynecology
DX: N90.4 Leukoplakia of vulva (principal); Z01.419 Encounter for gynecological examination (general) (routine) without abnormal findings
CPT/HCPCS: 99214; G0101

== ENCOUNTER → 2024-01-16 09:24 | Outpatient (BNVA) | payer MEDICARE, MEDICAID, SELFPAY | PROVIDERS: PCP Internal Medicine; Visit Provider Obstetrics & Gynecology | DX: Z01.411 Encounter for gynecological examination (general) (routine) with abnormal findings (principal); N90.4 Leukoplakia of vulva | CPT/HCPCS: 99212 ==

== ENCOUNTER 2024-02-22 09:20 | Outpatient (REF) | payer MEDICARE, MEDICAID, SELFPAY ==
--- NOTE | ~2024-02-22 | MM_ITS ---
EXAMINATION: MM SCREENING DIGITAL BREAST TOMOSYNTHESIS, BILATERAL CLINICAL INFORMATION: Screening. Asymptomatic. COMPARISON: Mammography: This study is compared with prior exams dating back to 2017. TECHNIQUE: Digital breast tomosynthesis is performed in both the craniocaudal and mediolateral oblique views along with computer-aided detection (CAD). Synthesized 2D images are generated from the tomosynthesis. FINDINGS: The breasts are almost entirely fatty (ACR BI-RADS breast composition Category a). There are no significant masses, abnormal calcifications, or other abnormalities. MM/MM tomosynthesis screening BI IMPRESSION: No mammographic evidence of malignancy. ASSESSMENT: BI-RADS BI-RADS 1 - Negative RECOMMENDATION: Routine annual mammography screening. 1 year F/U This examination should not preclude the clinical evaluation of a suspicious palpable abnormality. This patient's information was entered into a reminder system with a target due date for their next mammogram. Electronically signed by: Fadumo Aguirre MD 03/22/2024 03:27 PM EDT
== END 2024-02-22 09:21 | disposition home or self-care (01) ==
LOC: HO.MAMMO 09:20
PROVIDERS: PCP Internal Medicine; Visit Provider Obstetrics & Gynecology
DX: Z12.31 Encounter for screening mammogram for malignant neoplasm of breast (principal)
CPT/HCPCS: 77063; 77067

== ENCOUNTER → 2024-02-22 09:30 | Outpatient (BNV) | payer MEDICARE, MEDICAID, SELFPAY | PROVIDERS: PCP Internal Medicine; Visit Provider Radiology Diagnostic Radiology | DX: Z12.31 Encounter for screening mammogram for malignant neoplasm of breast (principal) | CPT/HCPCS: 77063; 77067 ==

== ENCOUNTER 2024-03-05 08:49 | Outpatient (REF) | payer MEDICARE, MEDICAID, SELFPAY | END 2024-03-05 08:50 | disposition home or self-care (01) | LOC: HO.LNP 08:49 | PROVIDERS: PCP Internal Medicine; Visit Provider Obstetrics & Gynecology | DX: N90.4 Leukoplakia of vulva (principal) | CPT/HCPCS: 56605; 88305; 88312 ==

== ENCOUNTER 2024-03-05 08:49 | Outpatient (AMB) | payer MEDICARE, MEDICAID, SELFPAY ==
[2024-03-05 08:54] VITALS: BP 126/70; BMI 32.9
--- NOTE | 2024-03-05 08:54 | MHC.OFFVIS ---
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: Bench Patternmaker Metal Present (Aminata NEWELL) Accompanied by: Self / Same As Patient Allergies amlodipine Allergy (Intermediate, Verified 03/05/24 08:55) fatigue atenolol Allergy (Intermediate, Verified 03/05/24 08:55) headache cefdinir Allergy (Intermediate, Verified 03/05/24 08:55) GI UPSET chlorthalidone Allergy (Intermediate, Verified 03/05/24 08:55) constipation hydrochlorothiazide Allergy (Intermediate, Verified 03/05/24 08:55) leg pain BuPROPion HCl Allergy (Intermediate, Uncoded 03/05/24 08:55) dizziness, nausea Codeine Phosphate Allergy (Intermediate, Uncoded 03/05/24 08:55) nausea Diltiazem HCl CR Allergy (Intermediate, Uncoded 03/05/24 08:55) headache and fatigue ENVIRONMENTAL Allergy (Intermediate, Uncoded 03/05/24 08:55) HAYFEVER Post menopausal: Yes HPI Comments Details: Presenting for vulvar biopsy for vulvar leukoplakia. [facility] Medical History Fibromyalgia Depression GERD (gastroesophageal reflux disease) Hypertension Surgical History History of endometrial ablation Family History Mother Lung cancer Anxiety Father COPD (chronic obstructive pulmonary disease) Heart disease Hypertension Diabetes High cholesterol Social History Alcohol intake: current Alcohol intake frequency: 0-2 drinks per day Alcohol type: beer Patient Tobacco Use Status: Current everyday Tobacco user Tobacco use type: Cigarette Cigarette Packs Per Day: 1.0 Cigarettes Per Day: 20.0 Second Hand Smoke Exposure: No Current occupational status: unemployed Current occupation: left handed Female Reproductive History Menstrual Age of Menarche: 13 Review of Systems Const All systems reviewed & are unremarkable except as noted in HPI and below Reports as per HPI and Reports no additional complaints GI Reports no additional complaints Reports no additional complaints Physical Exam Vital Signs: Last Vital Signs BP 126/70 08/28/24 08:54 BMI result Body Mass Index 32.9 Office 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 Preop dx: Right labia majora leukoplakia Op: Right labia majora leukoplakia biopsy Post op: Same Anesthesia: Lidocaine 1% 3cc used Procedure: Using betadine the area was scrubbed and draped in the usual manner. 3 cc of lidocaine was used for anesthesia at the Right labia majora leukoplakiaarea ; using punch biopsy forceps and pickup the Right labia majora leukoplakia biopsy was done. Pressure was used for hemostasis. The patient tolerated the procedure well. Discharge Instructions: The patient was instructed to schedule an appointment in 2 weeks for follow-up and to call if temp>100.4, area of the biopsy redness or pain, nausea/vomiting. This note was generated with a voice recognition program. Some errors may have been overlooked during the review of this note. Sometimes these errors may affect the content or meaning of a given sentence. 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
== END 2024-03-05 10:13 | disposition home or self-care (01) ==
LOC: HO.HWS 08:49
PROVIDERS: PCP Internal Medicine; Visit Provider Obstetrics & Gynecology
DX: N90.4 Leukoplakia of vulva (principal)
CPT/HCPCS: 56605

== ENCOUNTER 2024-03-27 13:04 | Outpatient (AMB) | payer MEDICARE, MEDICAID, SELFPAY ==
[2024-03-27 13:17] VITALS: BP 128/80; BMI 32.7
--- NOTE | 2024-03-27 13:17 | A.OFFVIS_ITS ---
Vital Signs 03/27/24 13:17 Height 5 ft 4 in Weight 190 lb 4 oz BMI 32.7 BP 128/80 Intake Visit Reasons: Biopsy Results Allergies amlodipine Allergy (Intermediate, Verified 03/05/24 08:55) fatigue atenolol Allergy (Intermediate, Verified 03/05/24 08:55) headache cefdinir Allergy (Intermediate, Verified 03/05/24 08:55) GI UPSET chlorthalidone Allergy (Intermediate, Verified 03/05/24 08:55) constipation hydrochlorothiazide Allergy (Intermediate, Verified 03/05/24 08:55) leg pain BuPROPion HCl Allergy (Intermediate, Uncoded 03/05/24 08:55) dizziness, nausea Codeine Phosphate Allergy (Intermediate, Uncoded 03/05/24 08:55) nausea Diltiazem HCl CR Allergy (Intermediate, Uncoded 03/05/24 08:55) headache and fatigue ENVIRONMENTAL Allergy (Intermediate, Uncoded 03/05/24 08:55) HAYFEVER HPI Comments Details: Presenting post vulvar biopsy to discuss the results of the pathology. Doing well with no complaints. The pathology showed the following: Vulva, excision: Inflamed squamous mucosa with early features of lichen sclerosus; no atypia or fungi identified PFS Medical History Fibromyalgia Depression GERD (gastroesophageal reflux disease) Hypertension Surgical History History of endometrial ablation Family History Mother Lung cancer Anxiety Father COPD (chronic obstructive pulmonary disease) Heart disease Hypertension Diabetes High cholesterol Social History Alcohol intake: current Alcohol intake frequency: 0-2 drinks per day Alcohol type: beer Patient Tobacco Use Status: Current everyday Tobacco user Tobacco use type: Cigarette Cigarette Packs Per Day: 1.0 Cigarettes Per Day: 20.0 Second Hand Smoke Exposure: No Current occupational status: unemployed Current occupation: left handed Female Reproductive History Menstrual Age of Menarche: 13 Date of last pap smear: 11/02/21 History of abnormal pap smear: No Date of Mammogram: 02/22/24 Review of Systems Const All systems reviewed & are unremarkable except as noted in HPI and below Reports as per HPI and Reports no additional complaints GI Reports no additional complaints Reports no additional complaints Physical Exam Vital Signs: Last Vital Signs BP 128/80 03/27/24 13:17 BMI result Body Mass Index 32.7 Assessment & Plan Assessment & Plan (1) Lichen sclerosus: Code(s): L90.0 - Lichen sclerosus et atrophicus Category: Medical Plan: Discussed with the patient the pathology results showing lichen sclerosis. Explained to the patient that Lichen sclerosus refers to a benign, chronic, progressive dermatologic condition characterized by marked inflammation, epithelial thinning accompanied by pruritus and pain. In addition, discussed wi th the patient that there is a small increased risk of squamous cell cancer of the vulva in patients with lichen sclerosus. Adequate treatment of the disease seems to be associated with a reduced risk of development of neoplasia. Instructed the patient to schedule an appointment in a year to examine the affected area, with possible biopsy of suspicious lesions, in addition explained to the patient that she should look at the skin of the affected area and touch with fingertips monthly to search for thickened lumps or sores that do not heal & to report such findings for inspection & possible biopsy to rule out vulvar cancer Will prescribe Clobetasol propionate 0.05% ointment to be applied daily at night for 6 to 12 weeks, followed by maintenance therapy two to three times per week . Medications: New clobetasol 0.05% Then maintenance therapy for 2-3 times per week 1 appl topical BID 6 weeks 45 grams 1RF Coding Level of Care Code Est Pt Level 3 (51728) Diagnoses Lichen sclerosus L90.0
== END 2024-03-27 13:32 | disposition home or self-care (01) ==
PROVIDERS: PCP Internal Medicine; Visit Provider Obstetrics & Gynecology
DX: L90.0 Lichen sclerosus et atrophicus (principal)
CPT/HCPCS: 99213

== ENCOUNTER → 2024-03-27 13:04 | Outpatient (BNVA) | payer MEDICARE, MEDICAID, SELFPAY | PROVIDERS: PCP Internal Medicine; Visit Provider Obstetrics & Gynecology | DX: L90.0 Lichen sclerosus et atrophicus (principal) | CPT/HCPCS: 99212 ==

== ENCOUNTER 2024-09-30 09:28 | Outpatient (AMB) | payer MEDICARE, MEDICAID, SELFPAY ==
--- NOTE | 2024-09-30 09:34 | MHC.PC.OV ---
Vital Signs 09/30/24 09:38 Height 5 ft 4.25 in Weight 198 lb BMI 33.7 BP 166/62 H Blood Pressure Location Rt brachial Pulse 79 Pulse Source Pulse Oximeter Temp 97.3 F Pulse Oximetry (%) 98 Intake Visit Reasons: sinus infection Intake Note: ears hurt Allergies amlodipine Allergy (Intermediate, Verified 09/30/24 11:29) fatigue atenolol Allergy (Intermediate, Verified 09/30/24 11:29) headache cefdinir Allergy (Intermediate, Verified 09/30/24 11:29) GI UPSET chlorthalidone Allergy (Intermediate, Verified 09/30/24 11:29) constipation hydrochlorothiazide Allergy (Intermediate, Verified 09/30/24 11:29) leg pain BuPROPion HCl Allergy (Intermediate, Uncoded 09/30/24 11:29) dizziness, nausea Codeine Phosphate Allergy (Intermediate, Uncoded 09/30/24 11:29) nausea Diltiazem HCl CR Allergy (Intermediate, Uncoded 09/30/24 11:29) headache and fatigue ENVIRONMENTAL Allergy (Intermediate, Uncoded 09/30/24 11:29) HAYFEVER Medication List - Last Reconciled 09/30/24 by Louise Shannon PA-C alprazolam 0.5 - 1 mg PO DAILY amoxicillin-pot clavulanate 875-125 mg 1 tab PO BID 10 days atorvastatin 20 mg PO DAILY cholecalciferol (vitamin D3) 25 mcg PO DAILY clobetasol 0.05% 1 appl topical BID 6 weeks clonidine HCl 0.1 mg PO BID fexofenadine (Allergy Relief (fexofenadine)) 180 mg PO DAILY furosemide 40 mg PO DAILY hydroxyzine HCl 25 mg PO BEDTIME PRN ibuprofen 600 mg PO Q8H PRN ketoconazole 2% topical losartan 100 mg PO DAILY meloxicam 15 mg PO DAILY mometasone 0.1% 1 appl topical DAILY omeprazole 40 mg PO DAILY PRN sertraline 100 mg PO DAILY 90 days PFSH Medical History (Updated 09/30/24 @ 11:53 by Louise Shannon PA-C) Class 1 obesity with body mass index (BMI) of 33.0 to 33.9 in adult History of mammogram (~02/22/24) Environmental allergies Vitamin D deficiency Hyperlipidemia Sinusitis Anxiety Fibromyalgia Depression GERD (gastroesophageal reflux disease) Hypertension Surgical History (Updated 09/30/24 @ 11:41 by Louise Shannon PA-C) History of colonoscopy (~05/01/16) History of endometrial ablation Family History Mother Lung cancer Anxiety Father COPD (chronic obstructive pulmonary disease) Heart disease Hypertension Diabetes High cholesterol Social History Alcohol intake: current Alcohol intake frequency: 0-2 drinks per day Alcohol type: beer Patient Tobacco Use Status: Current everyday Tobacco user Tobacco use type: Cigarette Cigarette Packs Per Day: 1.0 Cigarettes Per Day: 20.0 Second Hand Smoke Exposure: No Current occupational status: unemployed Current occupation: left handed Female Reproductive History Menstrual Age of Menarche: 13 Physical exam (Primary Care) Vital Signs: Last Vital Signs Temp 97.3 F 09/30/24 09:38 Pulse 79 09/30/24 09:38 BP 166/62 H 09/30/24 09:38 Pulse Ox 98 09/30/24 09:38 Care Plan Goal for BP management: <130/80. Patient will continue losartan 100 mg daily, furosemide 40 mg daily. She forgot to take it this morning. BMI result Body Mass Index 33.7 BMI Assessment/Plan discussion: High BMI High, discussed plan: lifestyle, weight reduction, dietary, physical activity and alcohol moderation Tobacco/Smoking Status: Tobacco use Status Patient Tobacco Use Status Current everyday Tobacco 09/30/24 09:40 Tobacco use type Cigarette 09/30/24 09:40 Coding Level of Care Code New Pt Level 4 (40172) Complex EM visit Add On G2211 Diagnoses Sinusitis J32.9 Anxiety F41.9 Depression F32.9 GERD (gastroesophageal reflux disease) K21.9 Hypertension I10 Hyperlipidemia E78.5 Vitamin D deficiency E55.9 Environmental allergies Z91.09 Lichen sclerosus L90.0 Class 1 obesity with body mass index (BMI) of 33.0 to 33.9 in adult E66.811; Z68.33 Assessment & Plan Assessment & Plan (1) Sinusitis: Code(s): J32.9 - Chronic sinusitis, unspecified Category: Medical Plan: Patient will be prescribed Augmentin b.i.d. for 10 days. Instructed to take a probiotic to reduced GI discomfort from antibiotics. Condition is stable will continue to monitor. (2) Anxiety: Code(s): F41.9 - Anxiety disorder, unspecified Category: Medical Plan: Patient currently on alprazolam 0.5-1 mg daily, sertraline 100 mg daily. Condition is chronic and stable continue to monitor. (3) Depression: Code(s): F32.9 - Major depressive disorder, single episode, unspecified Category: Medical Plan: Patient currently on alprazolam 0.5-1 mg daily, sertraline 100 mg daily. Condition is chronic and stable continue to monitor. (4) GERD (gastroesophageal reflux disease): Code(s): K21.9 - Gastro-esophageal reflux disease without esophagitis Category: Medical Plan: Patient is currently on omeprazole 40 mg daily. Condition is chronic and stable continue to monitor. (5) Hypertension: Code(s): I10 - Essential (primary) hypertension Category: Medical Plan: Blood pressure goal less than 130 over 80. Patient reports her blood pressure is usually normal after she takes her losartan 100 mg which she forgot this morning. Will assess at next visit and if continues to be elevated after taking her losartan she will need to be started on additional blood pressure medication she understands this. Condition is chronic and stable continue to monitor. (6) Hyperlipidemia: Code(s): E78.5 - Hyperlipidemia, unspecified Category: Medical Plan: LDL level goal less than 70, triglyceride level goal less than 150, total cholesterol level goal less than 200, HDL goal greater than 40. Patient had labs on 10/17/2023 which revealed triglycerides of 215, total cholesterol of 206, LDL 117 and HDL of 46. Will reassess at next visit with fasting labs. Patient to continue atorvastatin 20 mg daily. Condition is chronic and stable continue to monitor. (7) Vitamin D deficiency: Code(s): E55.9 - Vitamin D deficiency, unspecified Category: Medical Plan: Patient with history of vitamin-D deficiency. Patient to continue vitamin-D supplement 25 mcg daily will reassess at next lab draw. Condition is chronic and stable continue to monitor. (8) Environmental allergies: Code(s): Z91.09 - Other allergy status, other than to drugs and biological substances Category: Medical Plan: Patient to continue fellow fexofenadine 180 mg daily, hydroxyzine 25 mg at bedtime PRN. Condition is chronic and stable continue to monitor. (9) Lichen sclerosus: Code(s): L90.0 - Lichen sclerosus et atrophicus Category: Medical Plan: Patient to continue being followed by personal counselor and to continue clobetasol topical treatment as needed b.i.d.. Condition is chronic and stable continue to monitor (10) Class 1 obesity with body mass index (BMI) of 33.0 to 33.9 in adult: Code(s): E66.811 - Obesity, class 1; Z68.33 - Body mass index [BMI] 33.0-33.9, adult Category: Medical Plan: Patient to improve her diet and exercise regimen. Condition is chronic and stable continue to monitor. Plan Plan Patient was informed and verbally consented to the use of an ambient scribe for clinic note documentation during this visit. 1. Acute Sinusitis The patient is treated with Augmentin for ten days due to its broad coverage and her historical preference and response. Advised taking probiotics for gastrointestinal protection. 2. Essential Hypertension Continue losartan 100 mg daily to control blood pressure, reassess at the next visit. 3. Vitamin D Deficiency Maintain current Vitamin D supplementation to manage deficiency. 4. Panic Disorder Hydroxyzine at bedtime continues for current panic disorder control. 5. Anxiety Continue current use of alprazolam at night. No modifications made to regimen. 6. Superficial mycosis, unspecified Continued use of topical antifungal as required for rash management discussed. I discussed the diagnosis of acute sinusitis, prescribing amoxicillin-clavulanate (Augmentin) for infection management acknowledging her tolerance issues with azithromycin. The patient was advised on using probiotics to mitigate gastrointestinal side effects. We reviewed all medications, confirming their continuation with focus on anxiety and panic disorders, hyperlipidemia, and vitamin D deficiency. We discussed obtaining lab work before her next appointment to reassess her chronic conditions, ensuring she adheres to fasting requirements for comprehensive testing. I instructed her to contact us if she experiences any worsening symptoms or does not see improvement with prescribed treatments. Orders: Orders C Reactive Protein Today Z00.00 - Encounter for general adult medical examination without abnormal findings Complete Blood Count Auto Diff Today Z00.00 - Encounter for general adult medical examination without abnormal findings Erythrocyte Sedimentation Rate Today Z00.00 - Encounter for general adult medical examination without abnormal findings Progesterone Today Z00.00 - Encounter for general adult medical examination without abnormal findings Vitamin D 25-OH Total Today Z00.00 - Encounter for general adult medical examination without abnormal findings Phosphorus Today Z00.00 - Encounter for general adult medical examination without abnormal findings Magnesium Today Z.00 - Encounter for general adult medical examination without abnormal findings Lipid Panel Today Z00.00 - Encounter for general adult medical examination without abnormal findings Comprehensive [place]. Panel Fast Today Z. - Encounter for general adult medical examination without abnormal findings Prolactin Today Z. - Encounter for general adult medical examination without abnormal findings TSH reflex Free T4 Today Z.00 - Encounter for general adult medical examination without abnormal findings Vitamin A Today Z.00 - Encounter for general adult medical examination without abnormal findings Testosterone, Total Today Z. - Encounter for general adult medical examination without abnormal findings Vitamin B1 Today Z. - Encounter for general adult medical examination without abnormal findings Zinc Today Z. - Encounter for general adult medical examination without abnormal findings Vitamin B12 and Folate Today Z. - Encounter for general adult medical examination without abnormal findings Parathyroid Hormone Intact Today Z.00 - Encounter for general adult medical examination without abnormal findings Liver Panel Today Z. - Encounter for general adult medical examination without abnormal findings Estrogen Today Z.00 - Encounter for general adult medical examination without abnormal findings Hemoglobin A1c Today Z00.00 - Encounter for general adult medical examination without abnormal findings B Type Natriuretic Peptide Today R60.0 - Localized edema Medications: New amoxicillin-pot clavulanate 875-125 mg 1 tab PO BID 10 days 20 tabs 0RF sinusitis Patient Instructions: Patient Instructions - Complete the 10-day course of Augmentin as prescribed. - Take a probiotic daily to help reduce gastrointestinal discomfort from antibiotics. - Contact the office if symptoms worsen or do not improve. - Follow up with blood work, fasting is required; it's in the system, no paperwork needed. - Continue all current medications for chronic conditions. - Adhere to current management for panic disorder and anxiety. - Keep scheduled appointment on November 04, ensuring lab work is completed prior. - Stay hydrated and monitor for signs of dehydration or leg swelling. Scribe Plan - Not visible on output: History of Present Illness The patient is a 59-year-old female presenting with acute sinusitis. She reports chronic experiences of this ailment annually, with the current infection persisting for several weeks. Symptoms include nasal congestion and ear pain, associated with green nasal discharge. There is a noted intolerance to azithromycin, the previously effective oral antibiotic. Augmentin is preferred, acknowledging the risk of antibiotic-associated diarrhea. There is no report of fever. Current use of fexofenadine is noted for ongoing allergy management, which has not alleviated her current sinus and ear symptoms. Social History - The patient currently receives disability. - Noted to have anxiety and panic disorders which impact daily living. Review of Systems - Ears, Nose, Throat: Reports sinus congestion, ear pain, and green nasal discharge for several weeks; denies fever and neck stiffness. - Gastrointestinal: Reports recurring diarrhea, even when not on antibiotics. Physical Exam Appearance: Alert. Oriented X3. No acute distress. Head: Normal external exam. Normocephalic. Atraumatic. Eyes: Pupils are equal, round, and reactive to light. Extraocular movements intact. Conjunctiva and sclera normal. Eyelids normal. Ears: External auditory canal normal. Tympanic membranes normal. Little bit of fluid in the ear, but the ear canal is nice and clean and not red. Throat: Pharynx normal. Uvula midline. Moist mucous membranes. Palate examined. Neck: Normal inspection. Neck supple. Full range of motion. No adenopathy. Thyroid Normal. No meningeal signs. No neck mass noted. Cardiovascular: Normal heart rate and rhythm. Heart sound normal. No murmurs noted. Pulses normal throughout. Respiratory: No respiratory distress. Painless inspiration. Breath sounds normal. No wheezes/rales/rhonchi noted. Chest nontender. No accessory muscle usage noted or decreased air movement noted. Back: Full range of motion noted. Skin: Skin warm and dry. Normal skin color. Normal skin turgor. No rashes/lesions/lacerations noted. Extremities: No lower extremity edema. Extremities exhibit normal range of motion. Extremities nontender. Neuro: Oriented X 3. No motor deficit. No sensory deficit. Reflexes normal.
[2024-09-30 09:38] VITALS: BP 166/62; PULSE 79; TEMP 36.3; O2SAT 98; BMI 33.7
== END 2024-09-30 09:59 | disposition home or self-care (01) ==
LOC: HO.HMCSH 09:28
PROVIDERS: PCP Internal Medicine; Visit Provider Physician Assistant Medical
DX: J32.9 Chronic sinusitis, unspecified (principal); F41.9 Anxiety disorder, unspecified; F32.9 Major depressive disorder, single episode, unspecified; K21.9 Gastro-esophageal reflux disease without esophagitis; I10 Essential (primary) hypertension; E78.5 Hyperlipidemia, unspecified; E55.9 Vitamin D deficiency, unspecified; Z91.09 Other allergy status, other than to drugs and biological substances; L90.0 Lichen sclerosus et atrophicus; E66.811 Obesity, class 1; Z68.33 Body mass index [BMI] 33.0-33.9, adult

== ENCOUNTER → 2024-09-30 09:28 | Outpatient (BNVA) | payer MEDICARE, MEDICAID, SELFPAY | PROVIDERS: PCP Internal Medicine; Visit Provider Physician Assistant Medical | DX: J32.9 Chronic sinusitis, unspecified (principal); F41.9 Anxiety disorder, unspecified; F32.9 Major depressive disorder, single episode, unspecified; K21.9 Gastro-esophageal reflux disease without esophagitis; I10 Essential (primary) hypertension; E78.5 Hyperlipidemia, unspecified; E55.9 Vitamin D deficiency, unspecified; L90.0 Lichen sclerosus et atrophicus; E66.811 Obesity, class 1; Z68.33 Body mass index [BMI] 33.0-33.9, adult; Z91.09 Other allergy status, other than to drugs and biological substances; Z71.3 Dietary counseling and surveillance | CPT/HCPCS: 99202 ==

== ENCOUNTER 2024-10-31 06:21 | Outpatient (REF) | payer MEDICARE, MEDICAID, SELFPAY ==
[2024-10-31 06:50] LABS: MANUAL DIFF FLAG NO
[2024-10-31 07:18] LABS: Basophils Absolute Auto 0.1 X10*3/uL (0.0-0.2); Basophils Percent Auto 0.9 % (0-2); Eosinophils Absolute Auto 0.3 X10*3/uL (0.0-0.4); Eosinophils Percent Auto 3.5 % (0-4); Hematocrit 38.9 % (37.0-47.0); Hemoglobin 13.2 g/dl (12.0-16.0); Imm Gran Abs Auto 0.04 X10*3/uL (0.00-0.03); Imm Gran Pct Auto 0.5 % (0.0-0.4); Lymphocytes Absolute Auto 2.3 X10*3/uL (1.2-4.9); Lymphocytes Percent Auto 30.2 % (20-40); Mean Corpuscular HGB Conc 33.9 g/dl (31.0-35.0); Mean Corpuscular Hemoglobin 30.6 pg (27.0-33.0); Mean Corpuscular Volume 90.3 fL (80.0-98.0); Mean Platelet Volume 10.2 fL (9.4-12.3); Monocytes Absolute Auto 0.7 X10*3/uL (0.1-1.2); Monocytes Percent Auto 8.9 % (2-11); Neutrophils Absolute Auto 4.2 x10*3/uL (2.0-8.3); Platelet Count 193 X10*3/uL (160-400); Red Blood Count 4.31 X10*6/uL (4.20-5.50); Red Cell Distribution Width 13.1 % (11.0-16.0); White Blood Count 7.5 X10*3/uL (4.8-10.8)
[2024-10-31 07:19] LABS: Estimated Average Glucose 108 mg/dL; Hemoglobin A1C 124.8897 umol/L; Hemoglobin A1c % 5.4 % (<6.0); Total Hemoglobin (HGBA1C) 3521.4558 umol/L
[2024-10-31 07:48] LABS: B Type Natriuretic Peptide 30 pg/mL (<100)
[2024-10-31 07:50] LABS: Parathyroid Hormone Intact 47.2 pg/mL (8.7-77.1)
[2024-10-31 08:07] LABS: Anion Gap 12 (12-20); Blood Urea Nitrogen 14 mg/dL (9-16); Carbon Dioxide 24 mmol/L (22-29); Chloride 107 mmol/L (96-108); Estimated Glomerular Filt Rate > 60; Glucose Fasting 104 mg/dL (60-99); Sodium 139 mmol/L (135-145)
[2024-10-31 08:08] LABS: Alanine Aminotransferase 25 U/L (0-31); Albumin Level 4.3 g/dL (3.5-5.0); Alkaline Phosphatase 103 U/L (39-117); Aspartate Amino Transferase 24 U/L (5-31); Bilirubin Direct 0.1 mg/dL (0.0-0.5); Bilirubin Total 0.4 mg/dL (0.0-1.0); Calcium 9.5 mg/dL (8.4-10.2); Cholesterol 214 mg/dL (<200); HDL Cholesterol 50 mg/dL (>40); LDL Cholesterol Calculated 121 mg/dL (<100); Magnesium 1.9 mg/dL (1.6-2.6); Phosphorus 3.6 mg/dL (2.7-4.5); Total Protein 7.1 g/dL (6.5-8.0); Triglycerides 216 mg/dL (<150)
[2024-10-31 08:18] LABS: Folate 11.7 ng/mL (> or = 4.0); Vitamin B12 524 pg/mL (200-900)
[2024-10-31 08:22] LABS: TSH reflex Free T4 2.49 uIU/mL (0.32-4.0); Vitamin D 25-OH Total 46.6 ng/mL (>30)
[2024-10-31 11:45] LABS: Erythrocyte Sedimentation Rate 13 MM/HR (0-20)
[2024-11-01 08:54] LABS: Prolactin 5.1 ng/mL
[2024-11-03 17:33] LABS: Zinc 73 mcg/dL (60-130)
[2024-11-04 01:27] LABS: Vitamin A 70 mcg/dL (38-98)
[2024-11-05 15:52] LABS: Testosterone, Total 27 ng/dL (2-45)
[2024-11-06 20:08] LABS: Estrogen 79 pg/mL
[2024-11-08 16:28] LABS: Vitamin B1 16 nmol/L (8-30)
[2024-11-13 19:24] LABS: Progesterone 0.3 ng/mL
== END 2024-10-31 06:22 | disposition home or self-care (01) ==
LOC: HO.LAB 06:21
PROVIDERS: PCP Internal Medicine; Visit Provider Physician Assistant Medical
DX: Z00.00 Encounter for general adult medical examination without abnormal findings (principal); R60.0 Localized edema; Z13.1 Encounter for screening for diabetes mellitus; Z13.220 Encounter for screening for lipoid disorders
CPT/HCPCS: 36415; 80053; 80061; 80076; 82248; 82306; 82607; 82672; 82746; 83036; 83735; 83880; 83970; 84100; 84144; 84146; 84403; 84425; 84443; 84590; 84630; 85025; 85652; 86140

== ENCOUNTER 2024-11-04 09:29 | Outpatient (AMB) | payer MEDICARE, MEDICAID, SELFPAY ==
[2024-11-04 08:54] VITALS: BP 174/81; PULSE 88; RESP 16; TEMP 36.4; O2SAT 98; BMI 33.2
--- NOTE | 2024-11-04 08:54 | A.OFFPC_ITS ---
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 And Safety Required: No Accompanied by: Self / Same As Patient Allergies amlodipine Allergy (Intermediate, Verified 11/04/24 08:55) fatigue atenolol Allergy (Intermediate, Verified 11/04/24 08:55) headache cefdinir Allergy (Intermediate, Verified 11/04/24 08:55) GI UPSET chlorthalidone Allergy (Intermediate, Verified 11/04/24 08:55) constipation hydrochlorothiazide Allergy (Intermediate, Verified 11/04/24 08:55) leg pain BuPROPion HCl Allergy (Intermediate, Uncoded 11/04/24 08:55) dizziness, nausea Codeine Phosphate Allergy (Intermediate, Uncoded 11/04/24 08:55) nausea Diltiazem HCl CR Allergy (Intermediate, Uncoded 11/04/24 08:55) headache and fatigue ENVIRONMENTAL Allergy (Intermediate, Uncoded 11/04/24 08:55) HAYFEVER Tobacco use date assessed: 11/04/24 Dental Screening Dental Screen Date: 11/04/24 Did you have a dental visit in the last 12 months?: Yes Did you have a dental problem in the last 6 months where you did not have access to dental care?: No Was dental information given to patient?: Patient has dentist [facility] Medical History Class 1 obesity with body mass index (BMI) of 33.0 to 33.9 in adult History of mammogram (~02/22/24) Environmental allergies Vitamin D deficiency Hyperlipidemia Sinusitis Anxiety Fibromyalgia Depression GERD (gastroesophageal reflux disease) Hypertension Surgical History History of colonoscopy (~05/01/16) History of endometrial ablation Family History Mother Lung cancer Anxiety Father COPD (chronic obstructive pulmonary disease) Heart disease Hypertension Diabetes High cholesterol Social History Alcohol intake: current Alcohol intake frequency: 0-2 drinks per day Alcohol type: beer Patient Tobacco Use Status: Current everyday Tobacco user Tobacco use type: Cigarette Cigarette Packs Per Day: 1.0 Cigarettes Per Day: 20.0 Second Hand Smoke Exposure: No Current occupational status: unemployed Current occupation: left handed Female Reproductive History Menstrual Age of Menarche: 13 Questionnaire PHQ-9 Over the last 2 weeks, how often have you been bothered by any of the following problems? 1. Little interest or pleasure in doing things: not at all 2. Feeling down, depressed, or hopeless: not at all 3. Trouble falling or staying asleep, or sleeping too much: not at all 4. Feeling tired or having little energy: not at all 5. Poor appetite or overeating: not at all 6. Feeling bad about yourself - or that you are a failure or have let yourself or your family down: not at all 7. Trouble concentrating on things, such as reading the newspaper or watching television: not at all 8. Moving or speaking so slowly that other people could have noticed. Or the opposite - being so fidgety or restless that you have been moving around a lot more than usual: not at all 9. Thoughts that you would be better off or of hurting yourself in some way: not at all Total score: 0 Source: Developed by Drs. Андрей Harmon, Irene Marcelo, Pavel Lopez and colleagues, with an educational hilda from [employer]. Thrive Questionnaire Date Thrive assessed: 11/04/24 I am a: Patient What is your living situation today?: I have a steady place to live Within the past 12 months, did the food you bought not last and you didn't have the money to get more?: Never true Within the past 12 months, did you worry whether your food would run out before you got money to buy more?: Never true Do you have trouble paying for medicines?: No Do you have trouble getting transportation to medical appointments?: No Do you have trouble paying your heating and electricity bill?: No Do you have trouble taking care of your child, family member or friend?: No Do you have trouble with day-to-day activities such as bathing, preparing meals, shopping, managing finances, etc.?: No Are you currently unemployed and looking for a job?: No Are you interested in more education?: No Please select the resources that you would like help with: None THRIVE Score: 0 AUDIT C Alcohol Use Questionnaire (AUDIT-C) 1. How often do you have a drink containing alcohol?: 4 or more times a week 2. How many drinks containing alcohol do you have on a typical day when you are drinking?: 1 or 2 3. How often do you have six or more drinks on one occasion?: Never Total Score: 4 FERNANDA-7 AMB Questionnaire FERNANDA-7 Date FERNANDA - 7 assessed: 11/04/24 Feeling nervous, anxious, or on edge: 0 = Not at all Not being able to stop or control worryin = Not at all Worrying too much about different things: 0 = Not at all Trouble relaxin = Not at all Being so restless that it is hard to sit still: 0 = Not at all Becoming easily annoyed or irritable: 0 = Not at all Feeling afraid as if something awful might happen: 0 = Not at all Total FERNANDA-7 score (0-4 normal; 5-9 mild; 10-14 moderate; 15-21 severe): 0 Source: Developed by Drs. Андрей Harmon, Irene Marcelo, Pavel Lopez and colleagues, with an educational hilda from [employer]. Physical exam (Primary Care) Tobacco/Smoking Status: Tobacco use Status Patient Tobacco Use Status Current everyday Tobacco 08/04/22 13:44 Tobacco use type Cigarette 08/04/22 13:44 Coding
--- NOTE | 2024-11-04 09:37 | A.OFFPC_ITS ---
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 Accompanied by: Self / Same As Patient Allergies amlodipine Allergy (Intermediate, Verified 11/04/24 16:47) fatigue atenolol Allergy (Intermediate, Verified 11/04/24 16:47) headache cefdinir Allergy (Intermediate, Verified 11/04/24 16:47) GI UPSET chlorthalidone Allergy (Intermediate, Verified 11/04/24 16:47) constipation hydrochlorothiazide Allergy (Intermediate, Verified 11/04/24 16:47) leg pain BuPROPion HCl Allergy (Intermediate, Uncoded 11/04/24 16:47) dizziness, nausea Codeine Phosphate Allergy (Intermediate, Uncoded 11/04/24 16:47) nausea Diltiazem HCl CR Allergy (Intermediate, Uncoded 11/04/24 16:47) headache and fatigue ENVIRONMENTAL Allergy (Intermediate, Uncoded 11/04/24 16:47) HAYFEVER Medication List - Last Reconciled 11/04/24 by Pasha Mae MD alprazolam 0.5 - 1 mg PO DAILY atorvastatin 20 mg PO DAILY cholecalciferol (vitamin D3) 25 mcg PO DAILY clobetasol 0.05% 1 appl topical BID 6 weeks clonidine HCl 0.1 mg PO BID cyclobenzaprine 10 mg PO BEDTIME fexofenadine (Allergy Relief (fexofenadine)) 180 mg PO DAILY fluocinolone and shower cap 0.01 % topical BEDTIME PRN furosemide 40 mg PO DAILY hydroxyzine HCl 25 mg PO BEDTIME PRN ibuprofen 600 mg PO Q8H PRN ketoconazole 2% topical losartan 100 mg PO DAILY meloxicam 15 mg PO DAILY mometasone 0.1% 1 appl topical DAILY omeprazole 40 mg PO DAILY PRN sertraline 100 mg PO DAILY 90 days Tobacco use date assessed: 11/04/24 Dental Screening Dental Screen Date: 11/04/24 Did you have a dental visit in the last 12 months?: Yes Did you have a dental problem in the last 6 months where you did not have access to dental care?: No Was dental information given to patient?: Patient has dentist HPI 6 month follow up HPI0 Details 59-year-old female presents to the [facility] to discuss her chronic medical conditions. Patient is under a lot of mental stress as a significant person in her life is in hospice. She feels anxious and agitated at times. Occasional crying spells. Patient continues to body aches, lower backache and pain in her lower extremities. Patient has been diagnosed with degenerative joint disease and prefers not to be on medications. She has been seen at chronic pain management, orthopedic office etcetera. She is declining physical therapy. PENDING SALE TO [facility] Medical History (Updated 11/04/24 @ 16:53 by Pasha Mae MD) Tobacco use disorder Class 1 obesity with body mass index (BMI) of 33.0 to 33.9 in adult History of mammogram (~02/22/24) Environmental allergies Vitamin D deficiency Hyperlipidemia Sinusitis Anxiety Fibromyalgia Depression GERD (gastroesophageal reflux disease) Hypertension Surgical History History of colonoscopy (~05/01/16) History of endometrial ablation Family History Mother Lung cancer Anxiety Father COPD (chronic obstructive pulmonary disease) Heart disease Hypertension Diabetes High cholesterol Social History Housing: Apartment Alcohol intake: current Alcohol intake frequency: 0-2 drinks per day Alcohol type: beer Patient Tobacco Use Status: Current everyday Tobacco user Tobacco use type: Cigarette Cigarette Packs Per Day: 1.0 Cigarettes Per Day: 20.0 Second Hand Smoke Exposure: No Current occupational status: disabled Cognitive needs: No Hearing needs: No Vision needs: Yes (reading glasses) Female Reproductive History Menstrual Age of Menarche: 13 Questionnaire PHQ-9 Over the last 2 weeks, how often have you been bothered by any of the following problems? 1. Little interest or pleasure in doing things: not at all 2. Feeling down, depressed, or hopeless: not at all 3. Trouble falling or staying asleep, or sleeping too much: not at all 4. Feeling tired or having little energy: not at all 5. Poor appetite or overeating: not at all 6. Feeling bad about yourself - or that you are a failure or have let yourself or your family down: not at all 7. Trouble concentrating on things, such as reading the newspaper or watching television: not at all 8. Moving or speaking so slowly that other people could have noticed. Or the opposite - being so fidgety or restless that you have been moving around a lot more than usual: not at all 9. Thoughts that you would be better off or of hurting yourself in some way: not at all Total score: 0 Depression Screening Interpretation: Negative Depression Screening Done: Yes Source: Developed by Drs. Андрей Harmon, Irene Marcelo, Pavel Lopez and colleagues, with an educational hilda from [employer]. Thrive Questionnaire Date Thrive assessed: 11/04/24 I am a: Patient What is your living situation today?: I have a steady place to live Within the past 12 months, did the food you bought not last and you didn't have the money to get more?: Never true Within the past 12 months, did you worry whether your food would run out before you got money to buy more?: Never true Do you have trouble paying for medicines?: No Do you have trouble getting transportation to medical appointments?: No Do you have trouble paying your heating and electricity bill?: No Do you have trouble taking care of your child, family member or friend?: No Do you have trouble with day-to-day activities such as bathing, preparing meals, shopping, managing finances, etc.?: No Are you currently unemployed and looking for a job?: No Are you interested in more education?: No Please select the resources that you would like help with: None Currently or been in a relationship where the following occur: No concerns reported THRIVE Score: 0 AUDIT C Alcohol Use Questionnaire (AUDIT-C) 1. How often do you have a drink containing alcohol?: 4 or more times a week 2. How many drinks containing alcohol do you have on a typical day when you are drinking?: 1 or 2 3. How often do you have six or more drinks on one occasion?: Never Total Score: 4 FERNANDA-7 AMB Questionnaire FERNANDA-7 Date FERNANDA - 7 assessed: 11/04/24 Feeling nervous, anxious, or on edge: 3 = Nearly every day Not being able to stop or control worryin = Nearly every day Worrying too much about different things: 3 = Nearly every day Trouble relaxin = Nearly every day Being so restless that it is hard to sit still: 3 = Nearly every day Becoming easily annoyed or irritable: 3 = Nearly every day Feeling afraid as if something awful might happen: 3 = Nearly every day Total FERNANDA-7 score (0-4 normal; 5-9 mild; 10-14 moderate; 15-21 severe): 21 Source: Developed by Drs. Андрей Harmon, Irene Marcelo, Pavel Lopez and colleagues, with an educational hilda from [employer]. Physical exam (Primary Care) Vital Signs: Last Vital Signs Temp 97.6 F 11/04/24 08:54 Pulse 88 11/04/24 08:54 Resp 16 11/04/24 08:54 BP 174/81 H 11/04/24 08:54 Pulse Ox 98 11/04/24 08:54 Oxygen Delivery Method Room Air 11/04/24 08:54 Care Plan Goal for BP management: Blood pressure is elevated. Medications started. BMI result Body Mass Index 33.2 BMI Assessment/Plan discussion: High Tobacco/Smoking Status: Tobacco use Status Tobacco use date assessed 11/04/24 11/04/24 09:46 Patient Tobacco Use Status Current everyday Tobacco 11/04/24 09:46 Tobacco use type Cigarette 11/04/24 09:46 Are you ready to quit: No PHQ-9: PHQ-9 Score PHQ-9: Total score 0 11/04/24 09:47 Depression Screening Interpretation: Negative Thrive Assessment: Date of Thrive Assessment Date Thrive assessed 11/04/24 11/04/24 09:46 Currently or been in a relationship where the following occur: No concerns reported Const General: cooperative and healthy appearing Nutritional Appearance: well nourished Orientation/consciousness: patient oriented x3 Limitations: no limitations HENMT Head: Yes normal to inspection Eyes General: appearance normal, both eyes and all related structures Neck Neck: Yes normal visual inspection Chest Chest palpation & inspection: normal palpation of entire chest wall Resp Effort & Inspection: normal respiratory effort Neuro General: patient oriented x3 Coding Level of Care Code New Pt Level 4 (21564) Complex EM visit Add On G2211 Diagnoses Anxiety F41.9 Class 1 obesity with body mass index (BMI) of 33.0 to 33.9 in adult E66.811; Z68.33 Bilateral sacroiliitis M46.1 Tobacco use disorder F17.200 Assessment & Plan Assessment & Plan (1) Anxiety: Code(s): F41.9 - Anxiety disorder, unspecified Category: Medical Plan: Continue the alprazolam and clonidine. (2) Class 1 obesity with body mass index (BMI) of 33.0 to 33.9 in adult: Code(s): E66.811 - Obesity, class 1; Z68.33 - Body mass index [BMI] 33.0-33.9, adult Category: Medical Plan: Counseling on weight loss done. (3) Bilateral sacroiliitis: Code(s): M46.1 - Sacroiliitis, not elsewhere classified Category: Medical Plan: Chronic problem. Patient is declining physical therapy. (4) Tobacco use disorder: Code(s): F17.200 - Nicotine dependence, unspecified, uncomplicated Category: Medical Plan: Counseling to quit smoking done. Medications: New cyclobenzaprine 10 mg PO BEDTIME 14 tabs 0RF
== END 2024-11-04 10:16 | disposition home or self-care (01) ==
LOC: HO.HMCSH 09:29
PROVIDERS: PCP Internal Medicine; Visit Provider Internal Medicine
DX: F41.9 Anxiety disorder, unspecified (principal); E66.811 Obesity, class 1; Z68.33 Body mass index [BMI] 33.0-33.9, adult; M46.1 Sacroiliitis, not elsewhere classified; F17.200 Nicotine dependence, unspecified, uncomplicated

== ENCOUNTER → 2024-11-04 09:29 | Outpatient (BNVA) | payer MEDICARE, MEDICAID, SELFPAY | PROVIDERS: PCP Internal Medicine; Visit Provider Internal Medicine | DX: F41.9 Anxiety disorder, unspecified (principal); E66.811 Obesity, class 1; Z68.33 Body mass index [BMI] 33.0-33.9, adult; M46.1 Sacroiliitis, not elsewhere classified; F17.200 Nicotine dependence, unspecified, uncomplicated; Z71.3 Dietary counseling and surveillance | CPT/HCPCS: 99202 ==

== ENCOUNTER 2025-02-27 09:13 | Outpatient (REF) | payer MEDICARE, MEDICAID, SELFPAY ==
--- NOTE | ~2025-02-27 | MM_ITS ---
EXAMINATION: MM SCREENING DIGITAL BREAST TOMOSYNTHESIS, BILATERAL CLINICAL INFORMATION: Screening. Asymptomatic. COMPARISON: Mammography: Comparison is made with available priors TECHNIQUE: Digital breast mammography with tomosynthesis is performed in both the craniocaudal and mediolateral oblique views along with computer-aided detection (CAD). FINDINGS: There are scattered areas of fibroglandular density (ACR BI-RADS breast composition Category b). There are no significant masses, abnormal calcifications, or other abnormalities. MM/MM tomosynthesis screening BI IMPRESSION: No mammographic evidence of malignancy. ASSESSMENT: BI-RADS BI-RADS 1 - Negative RECOMMENDATION: Routine annual mammography screening. 1 year F/U This examination should not preclude the clinical evaluation of a suspicious palpable abnormality. This patient's information was entered into a reminder system with a target due date for their next mammogram. Electronically signed by: Vickie Garcia DO 03/03/2025 01:43 PM EDT
== END 2025-02-27 09:14 | disposition home or self-care (01) ==
LOC: HO.MAMMO 09:13
PROVIDERS: PCP Internal Medicine; Referring Provider Physician Assistant Medical; Visit Provider Internal Medicine
DX: Z12.31 Encounter for screening mammogram for malignant neoplasm of breast (principal)
CPT/HCPCS: 77063; 77067

== ENCOUNTER → 2025-02-27 09:30 | Outpatient (BNV) | payer MEDICARE, MEDICAID, SELFPAY | PROVIDERS: PCP Internal Medicine; Referring Provider Physician Assistant Medical; Visit Provider Internal Medicine | DX: Z12.31 Encounter for screening mammogram for malignant neoplasm of breast (principal) | CPT/HCPCS: 77063; 77067 ==

== ENCOUNTER 2025-04-02 12:59 | Outpatient (AMB) | payer MEDICARE, MEDICAID, SELFPAY ==
[2025-04-02 13:00] VITALS: BP 170/79; PULSE 87; TEMP 36.1; O2SAT 97; BMI 33.8
--- NOTE | 2025-04-02 13:00 | A.OFFPC_ITS ---
Vital Signs 04/02/25 13:00 Height 5 ft 4.25 in Weight 198 lb 8 oz BMI 33.8 BP 170/79 H Blood Pressure Location Rt brachial Position Sitting Pulse 87 Pulse Source Pulse Oximeter Temp 96.9 F Temp Source Temporal Artery Scan Pulse Oximetry (%) 97 Oxygen Delivery Method Room Air Intake Visit Reasons: follow up Access Services Representative Required: No Accompanied by: Self / Same As Patient Allergies amlodipine Allergy (Intermediate, Verified 04/02/25 14:29) fatigue atenolol Allergy (Intermediate, Verified 04/02/25 14:29) headache cefdinir Allergy (Intermediate, Verified 04/02/25 14:29) GI UPSET chlorthalidone Allergy (Intermediate, Verified 04/02/25 14:29) constipation hydrochlorothiazide Allergy (Intermediate, Verified 04/02/25 14:29) leg pain BuPROPion HCl Allergy (Intermediate, Uncoded 04/02/25 14:29) dizziness, nausea Codeine Phosphate Allergy (Intermediate, Uncoded 04/02/25 14:29) nausea Diltiazem HCl CR Allergy (Intermediate, Uncoded 04/02/25 14:29) headache and fatigue ENVIRONMENTAL Allergy (Intermediate, Uncoded 04/02/25 14:29) HAYFEVER Medication List - Last Reconciled 04/02/25 by Louise Shannon PA-C alprazolam 0.5 - 1 mg PO DAILY amoxicillin-pot clavulanate 875-125 mg 1 tab PO BID 10 days atorvastatin 20 mg PO DAILY cholecalciferol (vitamin D3) 25 mcg PO DAILY clobetasol 0.05% 1 appl topical BID 6 weeks clonidine HCl 0.1 mg PO BID cyclobenzaprine 10 mg PO Q8H fexofenadine (Allergy Relief (fexofenadine)) 180 mg PO DAILY fluocinolone and shower cap 0.01 % topical BEDTIME PRN furosemide 40 mg PO DAILY hydroxyzine HCl 25 mg PO BEDTIME PRN ibuprofen 600 mg PO Q8H PRN ketoconazole 2% topical losartan 100 mg PO DAILY meloxicam 15 mg PO DAILY mometasone 0.1% 1 appl topical DAILY mupirocin 2% 1 appl topical QID omeprazole 40 mg PO DAILY sertraline 100 mg PO DAILY 90 days Tobacco use date assessed: 04/02/25 Dental Screening Dental Screen Date: 09/25/25 Did you have a dental visit in the last 12 months?: Yes Did you have a dental problem in the last 6 months where you did not have access to dental care?: No Was dental information given to patient?: Patient has dentist HPI follow up HPI Details The patient is a 59-year-old female presenting with a leg laceration and chronic sinusitis symptoms. The leg laceration occurred when the patient's dog accidentally injured her with its cable on Sunday. The patient has been applying Neosporin to the wound, which appears to be healing well without signs of severe infection. However, due to the potential for infection, a prescription for Bactroban was provided. The patient reports chronic sinusitis symptoms, including a sensation of persistent sinus infection and gum problems. She has been taking allergy medicat ions but continues to experience symptoms, suggesting a possible chronic condition. The patient has a history of sinus infections and has previously undergone a CAT scan of her face. The patient has a history of degenerative spondylosis and osteoarthritis, which significantly impacts her mobility, especially in cold weather. She experiences severe pain after prolonged walking and reports numbness in her arms and hands, particularly when sleeping on her side. Previous interventions include physical therapy, neck and back injections, and pain management consultations, but these have provided limited relief. The patient experiences anxiety and panic attacks, exacerbated by recent personal loss, including the of her partner. She has been in counseling for five years but has discontinued due to her counselor's group home. The patient has a family history of vascular disease, with multiple relatives requiring interventions for clots in the legs. She reports good circulation but experiences muscle cramps in her legs. The patient reports chronic fatigue, which significantly affects her daily activities, such as mowing the lawn or using a weed whacker. She is a smoker, which may contribute to her fatigue and overall health status. Social History - Smoking: The patient is a smoker, whic h may contribute to her fatigue and overall health status. - Recent bereavement: The patient recent ly lost her partner of 33 years, which has impacted her mental health. [facility] Medical History (Updated 04/02/25 @ 14:33 by Louise Shannon PA-C) Chronic fatigue Anxiety disorder with panic attacks Leg laceration Fatigue Intermittent chest pain Family history of venous disease Degenerative spondylolisthesis Chronic sinus complaints Tobacco use disorder Class 1 obesity with body mass index (BMI) of 33.0 to 33.9 in adult History of mammogram (~02/27/25) Environmental allergies Vitamin D deficiency Hyperlipidemia Sinusitis Anxiety Fibromyalgia Depression GERD (gastroesophageal reflux disease) Hypertension Surgical History History of colonoscopy (~05/01/16) History of endometrial ablation Family History Mother Lung cancer Anxiety Father COPD (chronic obstructive pulmonary disease) Heart disease Hypertension Diabetes High cholesterol Social History Housing: House Alcohol intake: current Alcohol intake frequency: 0-2 drinks per day Alcohol type: beer Patient Tobacco Use Status: Current everyday Tobacco user Tobacco use type: Cigarette Cigarette Packs Per Day: 1.0 Cigarettes Per Day: 20.0 Second Hand Smoke Exposure: No service: No Current occupational status: disabled Cognitive needs: No Hearing needs: No Vision needs: Yes (reading glasses) Female Reproductive History Menstrual Age of Menarche: 13 Questionnaire PHQ-9 Over the last 2 weeks, how often have you been bothered by any of the following problems? 1. Little interest or pleasure in doing things: not at all 2. Feeling down, depressed, or hopeless: not at all 3. Trouble falling or staying asleep, or sleeping too much: not at all 4. Feeling tired or having little energy: not at all 5. Poor appetite or overeating: not at all 6. Feeling bad about yourself - or that you are a failure or have let yourself or your family down: not at all 7. Trouble concentrating on things, such as reading the newspaper or watching television: not at all 8. Moving or speaking so slowly that other people could have noticed. Or the opposite - being so fidgety or restless that you have been moving around a lot more than usual: not at all 9. Thoughts that you would be better off or of hurting yourself in some way: not at all Total score: 0 Depression Screening Interpretation: Negative Depression Screening Done: Yes Source: Developed by Drs. Андрей Harmon, Irene Marcelo, Pavel Lopez and colleagues, with an educational hilda from [employer]. Thrive Questionnaire Date Thrive assessed: 04/02/25 I am a: Patient What is your living situation today?: I have a steady place to live Within the past 12 months, did the food you bought not last and you didn't have the money to get more?: Never true Within the past 12 months, did you worry whether your food would run out before you got money to buy more?: Never true Do you have trouble paying for medicines?: No Do you have trouble getting transportation to medical appointments?: No Do you have trouble paying your heating and electricity bill?: No Do you have trouble taking care of your child, family member or friend?: No Do you have trouble with day-to-day activities such as bathing, preparing meals, shopping, managing finances, etc.?: No Are you currently unemployed and looking for a job?: No Are you interested in more education?: No Please select the resources that you would like help with: None Currently or been in a relationship where the following occur: No concerns reported THRIVE Score: 0 AUDIT C Alcohol Use Questionnaire (AUDIT-C) 1. How often do you have a drink containing alcohol?: 4 or more times a week 2. How many drinks containing alcohol do you have on a typical day when you are drinking?: 1 or 2 3. How often do you have six or more drinks on one occasion?: Never Total Score: 4 Score Reviewed/Action Taken: No FERNANDA-7 AMB Questionnaire FERNANDA-7 Date FERNANDA - 7 assessed: 04/02/25 Feeling nervous, anxious, or on edge: 3 = Nearly every day Not being able to stop or control worryin = Nearly every day Worrying too much about different things: 3 = Nearly every day Trouble relaxin = Nearly every day Being so restless that it is hard to sit still: 3 = Nearly every day Becoming easily annoyed or irritable: 3 = Nearly every day Feeling afraid as if something awful might happen: 3 = Nearly every day Total FERNANDA-7 score (0-4 normal; 5-9 mild; 10-14 moderate; 15-21 severe): 21 Source: Developed by Drs. Андрей Harmon, Irene Marcelo, Pavel Lopez and colleagues, with an educational hilda from [employer]. FERNANDA-7 Assessment Billing FERNANDA-7 Assessment Tool: FERNANDA-7 Assessment 68960 Review of Systems Const Details: - Cardiovascular: Reports chest pain, denies syncope. - Respiratory: Reports dyspnea on exertion, denies cough or wheezing. - Neurological: Reports numbness in arms and hands, denies headaches or dizziness. - Musculoskeletal: Reports muscle cramps in legs, denies joint swelling. - Psychiatric: Reports anxiety and panic attacks, denies depression. All systems reviewed & are unremarkable except as noted in HPI and below Physical exam (Primary Care) Vital Signs: Last Vital Signs Temp 96.9 F 04/02/25 13:00 Pulse 87 04/02/25 13:00 BP 170/79 H 04/02/25 13:00 Pulse Ox 97 04/02/25 13:00 Oxygen Delivery Method Room Air 04/02/25 13:00 Care Plan Goal for BP management: <140/90 patient reports she was not taking her blood pressure medications consistently therefore she is instructed to continue taking her blood pressure daily furosemide 40 mg and losartan 100 mg she will return in 1 month for blood pressure check BMI result Body Mass Index 33.8 BMI Assessment/Plan discussion: High BMI High, discussed plan: lifestyle, weight reduction, dietary, physical activity, alcohol moderation and other Tobacco/Smoking Status: Tobacco use Status Tobacco use date assessed 04/02/25 04/02/25 13:13 Patient Tobacco Use Status Current everyday Tobacco 04/02/25 13:05 Tobacco use type Cigarette 04/02/25 13:05 PHQ-9: PHQ-9 Score PHQ-9: Total score 0 04/02/25 13:15 Depression Screening Interpretation: Negative Thrive Assessment: Date of Thrive Assessment Date Thrive assessed 04/02/25 04/02/25 13:05 Currently or been in a relationship where the following occur: No concerns reported Const Other: Appearance: Alert. Oriented X3. No acute distress. Head: Normal external exam. Normocephalic. Atraumatic. Eyes: Pupils are equal, round, and reactive to light. Extraocular movements intact. Conjunctiva and sclera normal. Eyelids normal. Throat: Pharynx normal. Uvula midline. Moist mucous membranes. Neck: Normal inspection. Neck supple. Full range of motion. Cardiovascular: Normal heart rate and rhythm. Heart sound normal. No murmurs noted. Pulses normal throughout. Respiratory: No respiratory distress. Painless inspiration. Breath sounds normal. No wheezes/rales/rhonchi noted. Chest nontender. No accessory muscle usage noted or decreased air movement noted. Back: Full range of motion noted. Skin: Skin warm and dry. Normal skin color. Normal skin turgor. Well-healing wound to left leg right below the knee joint posterior aspect. Mild surrounding erythema there is no warmth to touch, soft tissue swelling, crepitus, purulent drainage or streaking noted at this time. No additional rashes/lesions/lacerations noted. Extremities: No lower extremity edema. Extremities exhibit normal range of motion. No calf tenderness is noted. Neuro: Oriented X 3. No motor deficit. No sensory deficit. Reflexes normal. Office Procedures Flu Questionnaire Does the patient have a severe egg allergy?: No Does the patient have severe life threatening allergies?: No Does the patient have a fever or illness today?: No Has the patient ever had Guillain-Langlois Syndrome?: No Has the patient ever had any past reaction to a flu shot?: No Immunizations Fluarix [id number] (PF) 45 mcg (15 mcg x 3)/0.5 mL IM syringe Performing Provider: Louise Shannon PA-C [facility] Documented (not given) by: Dianna Forrester CMA on 04/02/25 13:15 Reason Not Given: Received Previously Coding Level of Care Code Est Pt Level 4 (45444) Complex EM visit Add On G2211 Diagnoses Sinusitis J32.9 Leg laceration S81.819A Spondylosis of lumbar spine M47.816 Anxiety disorder with panic attacks F41.9 Hypertension I10 Hyperlipidemia E78.5 Chronic fatigue R53.82 Additional Codes FERNANDA-7 Assessment Billing - FERNANDA-7 Assessment Tool: FERNANDA-7 Assessment 93848 ([id number]) Time Spent (min) 55 Assessment & Plan Assessment & Plan (1) Sinusitis: Code(s): J32.9 - Chronic sinusitis, unspecified Category: Medical Plan: The patient will be referred to an Ear, Nose, and Throat specialist to evaluate chronic sinusitis symptoms and potential anatomical issues. Augmentin has been prescribed to address any potential bacterial infection contributing to sinusitis. (2) Leg laceration: Code(s): S81.819A - Laceration without foreign body, unspecified lower leg, initial encounter Category: Medical Plan: The patient has been advised to continue applying Neosporin to the leg laceration and has been prescribed Bactroban and Augmentin to prevent infection. The wound will be monitored for signs of infection, and the patient should seek further care if symptoms worsen. (3) Spondylosis of lumbar spine: Code(s): M47.816 - Spondylosis without myelopathy or radiculopathy, lumbar region Category: Medical Plan: The patient will be referred to orthopedics for further evaluation and management of degenerative spondylosis and osteoarthritis. Physical therapy and potential cortisone injections may be considered to alleviate symptoms. (4) Anxiety disorder with panic attacks: Code(s): F41.9 - Anxiety disorder, unspecified Category: Medical Plan: The patient has been experiencing anxiety and panic attacks, exacerbated by recent bereavement. She has declined further counseling but may benefit from continued support and monitoring of her mental health status. (5) Hypertension: Code(s): I10 - Essential (primary) hypertension Category: Medical Plan: The patient is advised to resume taking her antihypertensive medications regularly to manage elevated blood pressure. Follow-up blood pressure monitoring is recommended to ensure adequate control. (6) Hyperlipidemia: Code(s): E78.5 - Hyperlipidemia, unspecified Category: Medical Plan: The patient is advised to continue taking her statin medication to manage h yperlipidemia. Regular monitoring of lipid levels is recommended to assess treatment efficacy. (7) Chronic fatigue: Code(s): R53.82 - Chronic fatigue, unspecified Category: Medical Plan: The patient reports chronic fatigue, which may be related to her smoking habits and overall health status. Lifestyle modifications, including smoking cessation, may be beneficial in managing fatigue. Plan Plan Patient was informed and verbally consented to the use of an ambient scribe for clinic note documentation during this visit. 1. Sinusitis The patient will be referred to an Ear, Nose, and Throat specialist to evaluate chronic sinusitis symptoms and potential anatomical issues. Augmentin has been prescribed to address any potential bacterial infection contributing to sinusitis. 2. Laceration On Leg The patient has been advised to continue applying Neosporin to the leg laceration and has been prescribed Bactroban to prevent infection. The wound will be monitored for signs of infection, and the patient should seek further care if symptoms worsen. 3. Degenerative Spondylosis The patient will be referred to orthopedics for further evaluation and management of degenerative spondylosis and osteoarthritis. Physical therapy and potential cortisone injections may be considered to alleviate symptoms. 4. Anxiety And Panic Attacks The patient has been experiencing anxiety and panic attacks, exacerbated by recent bereavement. She has declined further counseling but may benefit from continued support and monitoring of her mental health status. 5. Hypertension The patient is advised to resume taking her antihypertensive medications regularly to manage elevated blood pressure. Follow-up blood pressure monitoring is recommended to ensure adequate control. 6. Hyperlipidemia The patient is advised to continue taking her statin medication to manage hyperlipidemia. Regular monitoring of lipid levels is recommended to assess treatment efficacy. 7. Chronic Fatigue The patient reports chronic fatigue, which may be related to her smoking habits and overall health status. Lifestyle modifications, including smoking cessation, may be beneficial in managing fatigue. During the visit, I discussed the management of the patient's chronic sinusitis, including the prescription of Augmentin and referral to an ENT specialist for further evaluation. We also addressed the leg laceration, advising continued use of Neosporin and prescribing Bactroban to prevent infection. The patient was informed about the importance of resuming antihypertensive medications and the need for follow-up blood pressure monitoring. Orders: Orders CA stress test Today I10 - Essential (primary) hypertension, R07.9 - Chest pain, unspecified, Z82.49 - Family history of ischemic heart disease and other diseases of the circulatory system CA echo transthoracic complete Today R07.9 - Chest pain, unspecified, R53.83 - Other fatigue ECG 12 lead EKG Today F17.200 - Nicotine dependence, unspecified, uncomplicated, I10 - Essential (primary) hypertension, R07.9 - Chest pain, unspecified, R53.83 - Other fatigue LAKEISHA Reflex Titer and Pattern Today M43.10 - Spondylolisthesis, site unspecified, M46.1 - Sacroiliitis, not elsewhere classified, M48.062 - Spinal stenosis, lumbar region with neurogenic claudication, M79.7 - Fibromyalgia, M89.49 - Other hypertrophic osteoarthropathy, multiple sites Comprehensive Met. Panel Today Z00.00 - Encounter for general adult medical examination without abnormal findings Magnesium Today Z00.00 - Encounter for general adult medical examination without abnormal findings Influenza [id number] Immunization Today Z23 - Encounter for immunization NM cardiolite stress test Today I51.89 - Other ill-defined heart diseases XR chest 2V Today Z00.00 - Encounter for general adult medical examination without abnormal findings UA CC w/rflx Micro + Cult Today Z00.00 - Encounter for general adult medical examination without abnormal findings Lipid Panel Today Z00.00 - Encounter for general adult medical examination without abnormal findings Rheumatoid Factor Today M43.10 - Spondylolisthesis, site unspecified, M46.1 - Sacroiliitis, not elsewhere classified, M48.062 - Spinal stenosis, lumbar region with neurogenic claudication, M54.2 - Cervicalgia, M79.7 - Fibromyalgia, M89.49 - Other hypertrophic osteoarthropathy, multiple sites Complete Blood Count Auto Diff Today Z00.00 - Encounter for general adult medical examination without abnormal findings Referrals Ear/Nose/Throat Referral R09.89 - Other specified symptoms and signs involving the circulatory and respiratory systems Cologuard Test Z12.11 - Encounter for screening for malignant neoplasm of colon Orthopedics Referral M43.10 - Spondylolisthesis, site unspecified, M47.812 - Spondylosis without myelopathy or radiculopathy, cervical region, M47.816 - Spondylosis without myelopathy or radiculopathy, lumbar region, M48.02 - Spinal stenosis, cervical region, M51.37 - Other intervertebral disc degeneration, lumbosacral region, M53.9 - Dorsopathy, unspecified, M54.12 - Radiculopathy, cervical region, M54.16 - Radiculopathy, lumbar region, R20.0 - Anesthesia of skin, R20.2 - Paresthesia of skin Vascular Surgery Referral F17.200 - Nicotine dependence, unspecified, uncomplicated, Z82.49 - Family history of ischemic heart disease and other diseases of the circulatory system Medications: New mupirocin 2% 1 appl topical QID 22 grams 1RF amoxicillin-pot clavulanate 875-125 mg 1 tab PO BID 20 tabs 0RF 10 days Changed From cyclobenzaprine 10 mg PO BEDTIME 14 tabs 0RF To cyclobenzaprine 10 mg PO Q8H 60 tabs 0RF Patient Instructions: - Continue applying Neosporin to the leg wound and start using Bactroban as prescribed. - Take Augmentin as prescribed for sinusitis symptoms. - Resume taking antihypertensive medications daily. - Schedule an appointment with an ENT specialist for further evaluation of sinusitis. - Monitor blood pressure regularly and report any significant changes. - Consider lifestyle changes, including smoking cessation, to improve overall health and reduce fatigue.
== END 2025-04-02 13:52 | disposition home or self-care (01) ==
LOC: HO.HMCSH 12:59
PROVIDERS: PCP Internal Medicine; Visit Provider Physician Assistant Medical
DX: J32.9 Chronic sinusitis, unspecified (principal); S81.819A Laceration without foreign body, unspecified lower leg, initial encounter; M47.816 Spondylosis without myelopathy or radiculopathy, lumbar region; F41.9 Anxiety disorder, unspecified; I10 Essential (primary) hypertension; E78.5 Hyperlipidemia, unspecified; R53.82 Chronic fatigue, unspecified; Z23 Encounter for immunization

== ENCOUNTER → 2025-04-02 12:59 | Outpatient (BNVA) | payer MEDICARE, MEDICAID, SELFPAY | PROVIDERS: PCP Internal Medicine; Visit Provider Physician Assistant Medical | DX: F41.0 Panic disorder [episodic paroxysmal anxiety] (principal); J32.9 Chronic sinusitis, unspecified; F41.9 Anxiety disorder, unspecified; I10 Essential (primary) hypertension; E78.5 Hyperlipidemia, unspecified; R53.82 Chronic fatigue, unspecified; M47.816 Spondylosis without myelopathy or radiculopathy, lumbar region; S81.819A Laceration without foreign body, unspecified lower leg, initial encounter; X58.XXXA Exposure to other specified factors, initial encounter; Y93.9 Activity, unspecified; Y92.9 Unspecified place or not applicable; Y99.9 Unspecified external cause status; Z28.89 Immunization not carried out for other reason | CPT/HCPCS: 90471; 96127; 99212 ==

== ENCOUNTER → 2025-05-07 08:39 | Outpatient (REF) | payer MEDICARE, MEDICAID, SELFPAY ==
--- NOTE | 2025-05-07 08:41 | CA_ITS ---
Transthoracic Echocardiogram Patient (Last, First, Middle): Navya Starr I Gender: F Date of : 1965 Age: 59 Procedure Date: 05/07/2025 Procedure Type: Transthoracic Echocardiogram Location: OP Height: 162.56 cm Weight: 89.81 kg BSA: 1.95 m2 Heart Rate: 72 bpm BP: 168 / 74 mmHg Airset Molder: SB Referring MD: Louise Shannon PA-C Symptoms: R07.9 - Chest pain, unspecified Study Quality: Fair ECG Rhythm: Sinus Conclusions: - The left ventricular systolic function is normal. The visually estimated ejection fraction is between 65-70%. - There is mild calcification of the aortic valve. - No obvious valvular pathology seen on this study. Findings Left Ventricle Normal left ventricular cavity size. There is mildly increased left ventricular wall thickness. The left ventricular systolic function is normal. The visually estimated ejection fraction is between 65-70%. There is no evidence of regional wall motion abnormalities. Diastolic function is normal for age. Right Ventricle Normal right ventricular cavity size and systolic function. Atria Both atria are normal in size. Aortic Valve There is mild calcification of the aortic valve. There is no aortic valve stenosis. There is no aortic valve regurgitation. Mitral Valve There is mild mitral annular calcification. There is no mitral valve regurgitation. There is no mitral valve stenosis. Pulmonic Valve The pulmonic valve is likely normal. Tricuspid Valve There is no tricuspid valve regurgitation. Tricuspid regurgitation envelope is inadequate for calculation of right ventricular systolic pressure. Great Vessels The asc aorta is normal in size. Venous The inferior vena cava is normal in size and collapses greater than 50% with inspiration. Pericardium/Pleural Prominent epicardial adipose tissue noted. There is no evidence of pericardial effusion. Prior Study Comparison No significant change compared to prior study dated: 10/31/2018. Recommendations, Care & Conclusions No obvious valvular pathology seen on this study. Measurements 2D Linear Measurements IVSd: 1.10 0.6-0.9/0.6-1.0 cm LVIDd: 4.35 3.9-5.3/4.2-5.9 cm LVIDd Index: 2.23 2.4-3.2/2.2-3.1 cm/m2 LVIDs: 2.70 2.0-3.6 cm LVPWd: 1.21 0.7-1.1 cm LA Diam: 4.00 2.7-3.8/3.0-4.0 cm LAIDs Index: 2.05 1.5-2.3 cm/m2 LV Mass: 221.62 67-162/88-224 g LV Mass Index: 113.65 43-95/49-115 g/m2 LVOT Diam: 2.10 3.0+(-)1.3 cm 2D Systolic Function EF 4C: 65.60 >55% EF 2C: 75.60 >55% EF BiP: 71.40 >55% Mitral Valve MV Pk E: 0.71 MV PK A: 0.78 MV Decel Time: 231.00 E/A: 0.90 E'Lateral: 6.31 E'Medial: 5.33 E/E' Med: 13.30 E/E' Lat: 11.30 PHT: 68.00 MVA PHT: 3.24 Decel Cassia: 3.08 Aortic Valve AoV Pk Nabeel: 1.28 AoV Pk Grad: 7.00 JERAMIE: 3.01 LVOT LVOT Pk Nabeel: 1.09 LVOT Mn Nabeel: 0.71 LVOT VTI: 0.23 LVOT Pk Grad: 5.00 LVOT Mn Grad: 2.00 LVOT Diam: 2.10 LVOT Area: 3.46 Diastolic Function MV Pk E: 0.71 MV Pk A: 0.78 E/A: 0.90 E'Medial: 5.33 E/E' Med: 13.30 E' Laterial: 6.31 E/E' Lat: 11.30 Right Ventricle TAPSE (mm): 16.40 TVS' Nabeel: 9.46 Tricuspid Valve RA Press: 3.00 Great Vessels Aorta Sinus of Valsalva: 2.90 2.0-3.5 cm Ao Asc: 3.20 2.1-3.4 cm Pulmonary Veins Pulm Vein S/D 1.10 Pulmonary Valve PV Pk Nabeel: 1.04 Peak PV Grad: 4.00 Updated in Other Vendor System with Status of Final Dipak Prabhakar MD electronically signed on 05/09/2025 10:18:27 AM with status of Final
[2025-05-07 09:46] LABS: MANUAL DIFF FLAG NO
[2025-05-07 10:38] LABS: Hematocrit 40.6 % (37.0-47.0); Hemoglobin 13.6 g/dl (12.0-16.0); Imm Gran Abs Auto 0.05 X10*3/uL (0.00-0.03); Imm Gran Pct Auto 0.7 % (0.0-0.4); Lymphocytes Absolute Auto 1.9 X10*3/uL (1.2-4.9); Mean Corpuscular HGB Conc 33.5 g/dl (31.0-35.0); Mean Corpuscular Hemoglobin 30.8 pg (27.0-33.0); Mean Corpuscular Volume 91.9 fL (80.0-98.0); NRBC Abs Auto 0.000 X10*3/uL (0.0-0.012); NRBC Pct Auto 0.0 /100WBC (0.0-0.2); Platelet Count 198 X10*3/uL (160-400); Red Blood Count 4.42 X10*6/uL (4.20-5.50); White Blood Count 7.2 X10*3/uL (4.8-10.8)
[2025-05-07 11:11] LABS: Alanine Aminotransferase 28 U/L (0-31); Albumin Level 4.6 g/dL (3.5-5.0); Alkaline Phosphatase 112 U/L (39-117); Anion Gap 11 (12-20); Aspartate Amino Transferase 27 U/L (5-31); Blood Urea Nitrogen 13 mg/dL (9-16); Calcium 9.3 mg/dL (8.4-10.2); Carbon Dioxide 26 mmol/L (22-29); Chloride 106 mmol/L (96-108); Cholesterol 206 mg/dL (<200); Estimated Glomerular Filt Rate > 60; HDL Cholesterol 37 mg/dL (>40); Magnesium 2.1 mg/dL (1.6-2.6); Potassium 4.1 mmol/L (3.3-5.1); Sodium 139 mmol/L (135-145); Total Protein 7.3 g/dL (6.5-8.0); Triglycerides 197 mg/dL (<150)
[2025-05-07 11:28] LABS: Appearance Urine Clear; Glucose Urine UA Negative (Negative); PH 5.5 (5.0-9.0); Specific Gravity - Urine >= 1.030 (1.005-1.025); UMIC TRIGGER UACC YES
[2025-05-07 12:18] LABS: UACC Culture Trigger YES
[2025-05-19 07:23] LABS: Anti Nuclear Antibody Pattern Nuclear, Homogeneous; Anti Nuclear Antibody Screen POSITIVE (NEGATIVE); Anti Nuclear Antibody Titer 1:80 titer
== END ==
LOC: HO.CARD 08:39
PROVIDERS: PCP Internal Medicine; Visit Provider Physician Assistant Medical
DX: Z00.00 Encounter for general adult medical examination without abnormal findings (principal); M89.49 Other hypertrophic osteoarthropathy, multiple sites; M46.1 Sacroiliitis, not elsewhere classified; M48.062 Spinal stenosis, lumbar region with neurogenic claudication; M43.10 Spondylolisthesis, site unspecified; M79.7 Fibromyalgia; M54.2 Cervicalgia; R07.89 Other chest pain; R53.83 Other fatigue
CPT/HCPCS: 36415; 80053; 80061; 81001; 81003; 83735; 85025; 86038; 86039; 86431; 87086; 87088; 87186; 93306

== ENCOUNTER → 2025-05-07 08:41 | Outpatient (BNV) | payer MEDICARE, MEDICAID, SELFPAY | PROVIDERS: PCP Internal Medicine; Visit Provider Internal Medicine | DX: I35.8 Other nonrheumatic aortic valve disorders (principal); I34.81 Nonrheumatic mitral (valve) annulus calcification | CPT/HCPCS: 93306 ==

== ENCOUNTER → 2025-05-22 08:13 | Outpatient (REF) | payer MEDICARE, MEDICAID, SELFPAY ==
--- NOTE | ~2025-05-22 | NM_ITS ---
EXERCISE MYOCARDIAL PERFUSION STUDY INDICATION: Chest pain TECHNIQUE: The patient was brought in for an exercise perfusion study on 05/22/2025. Patient performed exercise as per Levi protocol and was injected 30 mCi of sestamibi once target heart rate was achieved. Images were obtained using the SPECT gamma camera interlaced with the gating device. Images were obtained in supine position. Resting perfusion study was performed on 05/25/2025. Patient was administered 30 mCi of sestamibi intravenously at rest. Images were then obtained in supine position. Total DLP 81 mGy-cm. Images were processed with the software and compared side to side in short axis, horizontal long axis and vertical long axis views. FINDINGS: Raw aquisition reviewed. The stress perfusion study showed no significant perfusion abnormality. Both uncorrected as well as CT attenuation corrected images were reviewed. The gated study shows normal LV systolic function with calculated LVEF of 72%. LV cavity is normal in size. The gated study shows normal wall thickening and contraction of segments. Resting study shows no significant perfusion abnormality. Gating at rest reveals normal wall motion with ejection fraction at 69%. The findings are consistent with no clear reversible or fixed perfusion abnormality. NM/NM chapis perf SPECT rest & str IMPRESSION: 1. Myocardial perfusion imaging study shows normal myocardial perfusion. 2. Gated LVEF is 72% during stress and 69% during rest. 3. Transient ischemic dilatation not present. EKG component of the test reported separately. Electronically signed by: Dipak Prabhakar MD 05/25/2025 11:43 AM [facility]
--- NOTE | 2025-05-22 08:16 | CA_ITS ---
Acquisition Time: 2025-05-22 08:30:28 Total Exercise Time: 00:05:01 Test Indications: CP Medications: SEE H&P Protocol: JERI Max HR: 148 BPM 91% of Pred: 161 BPM Max BP: 182/74 mmHG Max Work Load: 4.6 METS Exercise stress test with exercise 5 mins 1 sec of Jeri Protocol held at Stage 1, achieving 90% MPHR, with reports of 2/10 mid chest tightness at baseline unchanged with exercise, with SOB, with isolated PVCs, with normotensive response to exercise. Without any EKG changes meeting criteria for ischemia. In recovery, breathing improved and chest discomfort still unchanged. Nuclear images oending. Test reviewed with Dr. Conde. Referred By: Louise Shannon Electronically Signed By: Jaime Craig
== END ==
LOC: HO.CARD 08:13
PROVIDERS: PCP Internal Medicine; Visit Provider Physician Assistant Medical
DX: I51.89 Other ill-defined heart diseases (principal); I10 Essential (primary) hypertension; R07.9 Chest pain, unspecified; Z82.49 Family history of ischemic heart disease and other diseases of the circulatory system
CPT/HCPCS: 78452; 93017; A9500; J0280; J2785

== ENCOUNTER → 2025-05-22 08:16 | Outpatient (BNV) | payer MEDICARE, MEDICAID, SELFPAY | PROVIDERS: PCP Internal Medicine | DX: I49.3 Ventricular premature depolarization (principal); R07.89 Other chest pain; R06.02 Shortness of breath | CPT/HCPCS: 78452; 93016; 93018 ==

== ENCOUNTER 2025-06-11 09:16 | Outpatient (AMB) | payer MEDICARE, MEDICAID, SELFPAY ==
[2025-06-11 09:20] VITALS: BMI 34.0
--- NOTE | 2025-06-11 09:20 | A.OFFVIS_ITS ---
Vital Signs 06/11/25 09:20 Height 5 ft 4 in Weight 198 lb BMI 34.0 Intake Visit Reasons: [facility] referral for PVD Intake Note: [facility]/ Pt states she has significant family history of PVD/PAD and has numbness in UE and LE. Pathology Laboratory Aide Required: No Accompanied by: Self / Same As Patient Allergies amlodipine Allergy (Intermediate, Verified 06/11/25 09:25) fatigue atenolol Allergy (Intermediate, Verified 06/11/25 09:25) headache cefdinir Allergy (Intermediate, Verified 06/11/25 09:25) GI UPSET chlorthalidone Allergy (Intermediate, Verified 06/11/25 09:25) constipation hydrochlorothiazide Allergy (Intermediate, Verified 06/11/25 09:25) leg pain BuPROPion HCl Allergy (Intermediate, Uncoded 06/11/25 09:25) dizziness, nausea Codeine Phosphate Allergy (Intermediate, Uncoded 06/11/25 09:25) nausea Diltiazem HCl CR Allergy (Intermediate, Uncoded 06/11/25 09:25) headache and fatigue ENVIRONMENTAL Allergy (Intermediate, Uncoded 06/11/25 09:25) HAYFEVER HPI HPI [facility] referral for PVD: Details: The patient is a 59 year old female presenting for a new patient evaluation for peripheral vascular disease. She is concerned about this condition due to a strong family history, noting that her sister, aunts, and mother have all had it. The patient reports a squeezing sensation below her kneecaps and groin cramp-like pain in the crease of her groin. Her right leg is more symptomatic than the left and wakes her at night with sharp, shooting cramps. She reports being able to walk a mile, but she stiffens up afterward. She denies having cold feet and states they are usually hot. Her medical history is significant for hypertension and hypercholesterolemia, for which she reports taking her medications religiously. She also has chronic back and neck problems, for which she is on disability, and notes her right ankle is messed up. She recently had a cardiac workup which was normal. Regarding social history, she smokes about a pack of cigarettes per day. She has no family history of diabetes. [facility] Medical History LAKEISHA positive Arthralgia of multiple joints Colon cancer screening (~05/02/25) Chronic fatigue Anxiety disorder with panic attacks Leg laceration Fatigue Intermittent chest pain Family history of venous disease Degenerative spondylolisthesis Chronic sinus complaints Tobacco use disorder Class 1 obesity with body mass index (BMI) of 33.0 to 33.9 in adult History of mammogram (~02/27/25) Environmental allergies Vitamin D deficiency Hyperlipidemia Sinusitis Anxiety Fibromyalgia Depression GERD (gastroesophageal reflux disease) Hypertension Surgical History History of colonoscopy (~05/01/16) History of endometrial ablation Family History Mother Lung cancer Anxiety Father COPD (chronic obstructive pulmonary disease) Heart disease Hypertension Diabetes High cholesterol Social History Housing: House Alcohol intake: current Alcohol intake frequency: 0-2 drinks per day Alcohol type: beer Patient Tobacco Use Status: Current everyday Tobacco user Tobacco use type: Cigarette Cigarette Packs Per Day: 1.0 Cigarettes Per Day: 20.0 Second Hand Smoke Exposure: No service: No Current occupational status: disabled Cognitive needs: No Hearing needs: No Vision needs: Yes (reading glasses) Female Reproductive History Menstrual Age of Menarche: 13 Review of Systems Const All systems reviewed & are unremarkable except as noted in HPI and below Reports no additional complaints ENT Reports Normal hearing present Card Denies chest pain, Denies chest pain at rest, Denies chest pain with activity and Denies pedal edema Resp Denies cough GI Denies abdominal pain Musc Denies abnormal gait, Denies muscle cramps and Denies radiating pain into limb Skin/Breast Denies skin ulcer and Denies wounds Neuro Reports Normal hearing present and Denies abnormal gait Psych Reports no additional complaints Physical Exam Vital Signs: BMI result Body Mass Index 34.0 Const General: cooperative, healthy appearing and comfortable Orientation/consciousness: oriented to person, oriented to place and oriented to time HEENT Head: Yes normal to inspection Neck Neck: Yes normal visual inspection Carotids: no bruits Chest Chest palpation & inspection: normal inspection of the chest Resp Effort & Inspection: normal respiratory effort and able to speak in complete sentences Auscultation: clear to auscultation bilaterally, no crackles, no rales, no rhonchi and no wheezes Cardio Other: bilateral palpable dorsalis pedis pulses but diminished Rate: regular rate Rhythm: regular rhythm Heart sounds: S1 normal heart sound present and S2 normal heart sound present Bruits: no carotid bruits Peripheral pulses: Peripheral pulses 2+ throughout GI Inspection: Yes normal to inspection Skin Wounds: no wounds Hair: normal Neuro General: oriented to person, oriented to place and oriented to time Cranial nerves: Yes CN's II-XII intact bilaterally and Yes Normal hearing present Cognition (Neuro): normal cognition Motor exam (neuro): 5/5 motor strength present throughout Extrem Other: venous exam: No significant superficial varicosities or spider telangiectasias, minimal edema General: No clubbing, No cyanosis and No edema Psych Appearance: grossly normal Mental Status: mental status grossly normal Speech and movement: Normal speech and movement present Assessment & Plan Assessment & Plan (1) Peripheral artery disease: Code(s): I73.9 - Peripheral vascular disease, unspecified Category: Medical Plan: I informed the patient that she does have diminished peripheral pulses but are palpable which is a very good sign, indicating healthy blood flow. However, due to her strong family history and reported symptoms, I recommended an ultrasound of her legs for a more thorough evaluation. We will determine the next steps after reviewing the ultrasound results. We also discussed a strategy of managing her overall health by addressing individual risk factors incrementally, such as blood pressure and cholesterol control. I acknowledged the challenges her chr onic pain poses to exercise and suggested focusing on accumulating steps throughout the day rather than in a single session. I have taken the liberty of ordering noninvasive arterial testing. She will follow up with us after testing. Thank you for allowing us to assist in her care. Plan Patient was informed and verbally consented to the use of an ambient scribe for clinic note documentation during this visit. Orders: Orders US arterial duplex LE Today I73.9 - Peripheral vascular disease, unspecified Patient Instructions: - We will order an ultrasound of your legs to check the blood flow more closely. - Continue to take your medications for blood pressure and cholesterol as you have been. - Try to increase your daily activity by taking short walks throughout the day instead of one long one. - Using a watch that counts your steps can help track your progress. - We will go over the results of your ultrasound at a follow-up appointment. Coding Level of Care Code New Pt Level 4 (86007) Diagnoses Peripheral artery disease I73.9
== END 2025-06-11 10:11 | disposition home or self-care (01) ==
LOC: HO.HVS 09:17
PROVIDERS: PCP Internal Medicine; Visit Provider Surgery Vascular Surgery
DX: I73.9 Peripheral vascular disease, unspecified (principal)
CPT/HCPCS: 99204

== ENCOUNTER → 2025-06-11 09:16 | Outpatient (BNVA) | payer MEDICARE, MEDICAID, SELFPAY | PROVIDERS: PCP Internal Medicine; Visit Provider Surgery Vascular Surgery | DX: Z71.2 Person consulting for explanation of examination or test findings (principal); I73.9 Peripheral vascular disease, unspecified | CPT/HCPCS: 99202 ==